=== PATIENT | female | born 1955 | race Caucasian/White ===

== ENCOUNTER → 2016-12-09 | Outpatient (CLI) | payer OTHER, MEDICARE ==
[~2016-12-09] MED LIST: ALPR1TAB2 PO; AMLO10TA4 PO; AMLO5TAB2 PO; ASPI1TAB30 PO; COLC0.6T37 PO; FLUC200T IV; LAMO2TB. PO; LOSA100T6 PO; MECL-76 PO; OMEP40CA6 PO; PIPE3.375 IV; PREG50CA PO; VALS40TA2 PO
== END | disposition home or self-care (01) ==
LOC: WOUND 09:24
PROVIDERS: ATTEND Surgery
DX: T81.89XD Other complications of procedures, not elsewhere classified, subsequent encounter (principal); K57.32 Diverticulitis of large intestine without perforation or abscess without bleeding; Z93.3 Colostomy status; K21.9 Gastro-esophageal reflux disease without esophagitis; F32.9 Major depressive disorder, single episode, unspecified; G43.909 Migraine, unspecified, not intractable, without status migrainosus; M19.90 Unspecified osteoarthritis, unspecified site; E43 Unspecified severe protein-calorie malnutrition; I25.2 Old myocardial infarction; F41.9 Anxiety disorder, unspecified; Z68.25 Body mass index [BMI] 25.0-25.9, adult; Z90.710 Acquired absence of both cervix and uterus; Y83.8 Other surgical procedures as the cause of abnormal reaction of the patient, or of later complication, without mention of misadventure at the time of the procedure
CPT/HCPCS: 99214

== ENCOUNTER → 2016-12-16 | Outpatient (CLI) | payer OTHER, MEDICARE | END | disposition home or self-care (01) | LOC: WOUND 09:30 | PROVIDERS: ATTEND Physician Assistant | DX: T81.89XD Other complications of procedures, not elsewhere classified, subsequent encounter (principal); K57.32 Diverticulitis of large intestine without perforation or abscess without bleeding; Y83.8 Other surgical procedures as the cause of abnormal reaction of the patient, or of later complication, without mention of misadventure at the time of the procedure | CPT/HCPCS: 99213 ==

== ENCOUNTER → 2016-12-19 | Outpatient (CLI) | payer OTHER, MEDICARE | END | disposition home or self-care (01) | LOC: CFH 11:08 | PROVIDERS: ATTEND Nurse Practitioner | DX: Z13.820 Encounter for screening for osteoporosis (principal); M81.0 Age-related osteoporosis without current pathological fracture; N95.9 Unspecified menopausal and perimenopausal disorder | CPT/HCPCS: 77080 ==

== ENCOUNTER 2017-02-22 18:31 | Emergency (ER) | payer MEDICARE, OTHER ==
[~2017-02-22] VITALS: Ht 167.6 cm; Wt 65.6 kg
[2017-02-22] MEDS ORDERED: KETOROLAC 30 MG/1 ML ONE (19:25)
[2017-02-22] MEDS ORDERED: DIAZEPAM 5 MG TABLET ONE (19:25)
[2017-02-22] MEDS ORDERED: OXYcodone/APAP 5/325MG TABLET ONE (19:28)
[2017-02-22] MEDS ORDERED: DIAZEPAM 5 MG TABLET PO ONE (19:30)
[2017-02-22] MEDS ORDERED: KETOROLAC 30 MG/1 ML IM ONE (19:30)
[2017-02-22] MEDS ORDERED: OXYcodone/APAP 5/325MG TABLET PO ONE (19:30)
[2017-02-22 19:55] LABS: ASPARTATE AMINO TRANSFERASE 8 U/L (15-37); BLOOD UREA NITROGEN 11 mg/dL (7-18)
[2017-02-22 21:33] VITALS: BP 126/70
== END 2017-02-22 21:35 | disposition home or self-care (01) ==
LOC: ED 20:49
DX: S16.1XXA Strain of muscle, fascia and tendon at neck level, initial encounter (principal); S39.012A Strain of muscle, fascia and tendon of lower back, initial encounter; S29.011A Strain of muscle and tendon of front wall of thorax, initial encounter; I10 Essential (primary) hypertension; M19.90 Unspecified osteoarthritis, unspecified site; G43.909 Migraine, unspecified, not intractable, without status migrainosus; M10.9 Gout, unspecified; K21.9 Gastro-esophageal reflux disease without esophagitis; K75.9 Inflammatory liver disease, unspecified; Z90.710 Acquired absence of both cervix and uterus; V49.49XA Driver injured in collision with other motor vehicles in traffic accident, initial encounter; Y93.89 Activity, other specified; Y92.89 Other specified places as the place of occurrence of the external cause; Y99.8 Other external cause status
CPT/HCPCS: 36415; 70450; 71010; 72072; 72110; 80053; 85025; 96372; 99285; J1885

== ENCOUNTER → 2017-03-28 | Outpatient (CLI) | payer OTHER, MEDICARE | END | disposition home or self-care (01) | LOC: WOUND 09:52 | PROVIDERS: ATTEND Internal Medicine | DX: K94.00 Colostomy complication, unspecified (principal); K94.09 Other complications of colostomy; I10 Essential (primary) hypertension; K21.9 Gastro-esophageal reflux disease without esophagitis; M10.9 Gout, unspecified; G43.909 Migraine, unspecified, not intractable, without status migrainosus; M19.90 Unspecified osteoarthritis, unspecified site; Z90.710 Acquired absence of both cervix and uterus; Z86.19 Personal history of other infectious and parasitic diseases; Z43.3 Encounter for attention to colostomy | CPT/HCPCS: 99214 ==

== ENCOUNTER → 2017-04-04 | Outpatient (CLI) | payer OTHER, MEDICARE | END | disposition home or self-care (01) | LOC: WOUND 09:58 | PROVIDERS: ATTEND Internal Medicine | DX: T81.89XD Other complications of procedures, not elsewhere classified, subsequent encounter (principal); I10 Essential (primary) hypertension; K21.9 Gastro-esophageal reflux disease without esophagitis; M19.90 Unspecified osteoarthritis, unspecified site; Z86.19 Personal history of other infectious and parasitic diseases; Z90.710 Acquired absence of both cervix and uterus; Y83.8 Other surgical procedures as the cause of abnormal reaction of the patient, or of later complication, without mention of misadventure at the time of the procedure | CPT/HCPCS: 99213 ==

== ENCOUNTER → 2017-04-11 | Outpatient (CLI) | payer OTHER, MEDICARE | END | disposition home or self-care (01) | LOC: WOUND 10:00 | PROVIDERS: ATTEND Internal Medicine | DX: T81.89XD Other complications of procedures, not elsewhere classified, subsequent encounter (principal); I10 Essential (primary) hypertension; K21.9 Gastro-esophageal reflux disease without esophagitis; M19.90 Unspecified osteoarthritis, unspecified site; Z90.710 Acquired absence of both cervix and uterus; Z86.19 Personal history of other infectious and parasitic diseases; Y83.8 Other surgical procedures as the cause of abnormal reaction of the patient, or of later complication, without mention of misadventure at the time of the procedure | CPT/HCPCS: 99213 ==

== ENCOUNTER → 2017-04-18 | Outpatient (CLI) | payer OTHER, MEDICARE ==
[~2017-04-18] MED LIST changes: +CALC300T5 PO
== END | disposition home or self-care (01) ==
LOC: WOUND 11:07
PROVIDERS: ATTEND Internal Medicine
DX: T81.89XD Other complications of procedures, not elsewhere classified, subsequent encounter (principal); I10 Essential (primary) hypertension; K21.9 Gastro-esophageal reflux disease without esophagitis; M19.90 Unspecified osteoarthritis, unspecified site; Z86.19 Personal history of other infectious and parasitic diseases; Z90.710 Acquired absence of both cervix and uterus; Y83.8 Other surgical procedures as the cause of abnormal reaction of the patient, or of later complication, without mention of misadventure at the time of the procedure
CPT/HCPCS: 99213

== ENCOUNTER → 2017-04-27 | Outpatient (CLI) | payer OTHER, MEDICARE ==
[2017-04-27 11:27] LABS: HEMATOCRIT 37.7 % (34.6-47.8); HEMOGLOBIN 11.7 g/dL (11.7-16.4); WHITE BLOOD COUNT 7.4 x10^3/uL (3.4-10)
[2017-04-27 11:30] LABS: ASPARTATE AMINO TRANSFERASE 9 U/L (15-37); BLOOD UREA NITROGEN 12 mg/dL (7-18)
== END | disposition home or self-care (01) ==
LOC: STAR 09:55
PROVIDERS: ATTEND Surgery
DX: Z01.818 Encounter for other preprocedural examination (principal)
CPT/HCPCS: 36415; 80053; 85025; 93005

== ENCOUNTER 2017-05-09 13:50 | Emergency (ER) | payer OTHER, MEDICARE ==
[~2017-05-09] VITALS: Ht 167.6 cm; Wt 67.0 kg
[2017-05-09] MEDS ORDERED: SODIUM CHLORIDE 0.9% 1,000ML IVBOLUS ONE (14:30)
[2017-05-09] MEDS ORDERED: KETOROLAC 30 MG/1 ML IVPush ONE (14:30)
[2017-05-09] MEDS ORDERED: ONDANSETRON 2MG/ML, 2ML IVPush ONE ×2 (14:30→17:30)
[2017-05-09] MEDS ORDERED: SODIUM CHLORIDE FLUSH 10ML SYR IVF ONE (14:30)
[2017-05-09] MEDS ORDERED: DIAZEPAM 5 MG/ML, 2ML IV ONE (14:30)
[2017-05-09] MEDS ORDERED: KETOROLAC 30 MG/1 ML ONE (15:23)
[2017-05-09] MEDS ORDERED: ONDANSETRON 2MG/ML, 2ML ONE ×2 (15:23→17:42)
[2017-05-09 15:27] LABS: BLOOD UREA NITROGEN 12 mg/dL (7-18)
[2017-05-09 15:29] LABS: ASPARTATE AMINO TRANSFERASE 11 U/L (15-37); HEMATOCRIT 37.7 % (34.6-47.8); HEMOGLOBIN 12.2 g/dL (11.7-16.4)
[2017-05-09 16:08] LABS: DIFF TOTAL CELLS COUNTED 100 CELL DIFF
[2017-05-09 16:12] LABS: VERIFY COUNTS? YES
[2017-05-09 16:15] LABS: HYPOCHROMIA 1+; MICROCYTOSIS 1+
[2017-05-09 16:16] LABS: OVALOCYTES 1+
[2017-05-09 16:17] LABS: ANISOCYTOSIS 1+
[2017-05-09] MEDS ORDERED: morphine SULFATE 10 MG/ML, 1ML IVPush ONE (17:30)
[2017-05-09] MEDS ORDERED: MORPHINE SULFATE 4 MG/ML, 1ML ONE (17:42)
[2017-05-09 18:36] VITALS: BP 116/65
== END 2017-05-09 19:01 | disposition home or self-care (01) ==
LOC: ED 18:43
DX: R10.84 Generalized abdominal pain (principal); R51 Headache; R11.0 Nausea
CPT/HCPCS: 36415; 74020; 80053; 81003; 83605; 83690; 85025; 85610; 96361; 96374; 96375; 96376; 99285; J1885; J2270; J2405; J3360; J7030

== ENCOUNTER → 2017-05-10 | Outpatient (CLI) | payer OTHER, MEDICARE ==
[~2017-05-10] MED LIST changes: +OMNIPAQUE 350 MG/ML, 100ML BOTTLE ONE
== END | disposition home or self-care (01) ==
LOC: CFH 13:08
PROVIDERS: ATTEND Surgery
DX: K43.5 Parastomal hernia without obstruction or gangrene (principal); M51.36 Other intervertebral disc degeneration, lumbar region
CPT/HCPCS: 74177; Q9967

== ENCOUNTER → 2017-06-09 | Outpatient (CLI) | payer OTHER, MEDICARE ==
[~2017-06-09] MED LIST changes: -ASPI1TAB30 PO; +ASPI1TAB31 PO; +IRON PO; +LAMO200T PO; -OMNIPAQUE 350 MG/ML, 100ML BOTTLE ONE
== END ==
LOC: STAR 09:27
PROVIDERS: ATTEND Surgery
DX: Z02.9 Encounter for administrative examinations, unspecified (principal)

== ENCOUNTER 2017-06-22 09:30 | Inpatient (IN) | payer OTHER, MEDICARE ==
[~2017-06-22] VITALS: Ht 167.6 cm; Wt 66.7 kg
[2017-06-22] MEDS ORDERED: LIDOCAINE 1%, 2ML ONE (11:24)
[2017-06-22 11:36] VITALS: BP 124/74
[2017-06-22] MEDS ORDERED: MIDAZOLAM 1 MG/ML, 2ML ONE (13:04)
[2017-06-22] MEDS ORDERED: FENTANYL PF 100 MCG/2ML ONE ×4 (13:04→17:48)
[2017-06-22] MEDS ORDERED: INDOCYANINE GREEN 25 MG VIAL ONE (14:24)
[2017-06-22] MEDS ORDERED: ONDANSETRON 2MG/ML, 2ML ONE (14:39)
[2017-06-22] MEDS ORDERED: ROCURONIUM 10 MG/ML ONE ×2 (14:39)
[2017-06-22] MEDS ORDERED: PROPOFOL 10 MG/ML, 20ML ONE (14:39)
[2017-06-22] MEDS ORDERED: SUCCINYLCHOLINE 20 MG/ML, 10ML ONE (14:39)
[2017-06-22] MEDS ORDERED: GLYCOPYRROLATE 0.2MG/1ML, 5ML ONE (14:39)
[2017-06-22] MEDS ORDERED: NEOSTIGMINE 1 MG/ML, 10ML ONE (14:39)
[2017-06-22] MEDS ORDERED: CEFOTETAN 2 GM ONE (14:39)
[2017-06-22] MEDS ORDERED: DEXAMETHASONE 4 MG/ML, 1ML ONE (14:39)
[2017-06-22] MEDS ORDERED: EPHEDRINE 50 MG/ML, 1ML ONE (14:39)
[2017-06-22] MEDS ORDERED: ACETAMINOPHEN 325 MG TABLET PO PRN (16:00)
[2017-06-22] MEDS ORDERED: OXYcodone 5 MG/5 ML ORAL.SOL UDC PO PRN (16:00)
[2017-06-22] MEDS ORDERED: LABETALOL 5MG/ML, 20ML IV PRN (16:00)
[2017-06-22] MEDS ORDERED: hydrALAzine 20 MG/ML, 1ML IV PRN (16:00)
[2017-06-22] MEDS ORDERED: ONDANSETRON 2MG/ML, 2ML IVPush PRN (16:00)
[2017-06-22] MEDS ORDERED: METOCLOPRAMIDE 5 MG/ML, 2ML IV PRN (16:00)
[2017-06-22] MEDS ORDERED: ACETAMINOPHEN 650 MG/20.3 ML UDC ONE (17:39)
[2017-06-22] MEDS: FENTANYL PF 100 MCG/2ML IV PRN ×3 (17:40→18:05)
[2017-06-22] MEDS ORDERED: ACETAMINOPHEN 325 MG TABLET ONE (17:40)
[2017-06-22] MEDS ORDERED: OXYcodone 5 MG/5 ML ORAL.SOL UDC ONE (17:40)
[2017-06-22] MEDS ORDERED: HYDROmorphone 1 MG/ML, 1ML ONE ×2 (17:49→18:09)
[2017-06-22] MEDS: HYDROmorphone 1 MG/ML, 1ML IV PRN ×5 (17:50→21:36)
[2017-06-22 19:30] VITALS: BP 124/69
[2017-06-22] MEDS ORDERED: LORazepam 2 MG/ML, 1ML IV PRN (19:30)
[2017-06-22] MEDS ORDERED: LORazepam 1MG TABLET PO PRN (19:30)
[2017-06-22] MEDS ORDERED: ONDANSETRON 2MG/ML, 2ML IV PRN (19:30)
[2017-06-22] MEDS ORDERED: DIPHENHYDRAMINE 50 MG/ML, 1ML IV PRN (19:30)
[2017-06-22] MEDS: IBUPROFEN 800 MG TABLET PO SCH (21:36)
[2017-06-22] MEDS: ACETAMINOPHEN 500 MG TABLET PO SCH (21:36)
[2017-06-22] MEDS: ASA/APAP/ CAFFEINE TABLET PO SCH (22:29)
[2017-06-22] MEDS: POTASSIUM CHLORIDE 20 MEQ in D5%-0.45% NACL 1,000 ML IV SCH (22:29)
[2017-06-22] MEDS: OXYcodone 5 MG/5 ML ORAL.SOL UDC PO PRN (22:29)
[2017-06-23] VITALS: BP 98/58
[2017-06-23] MEDS: HYDROmorphone 1 MG/ML, 1ML IV PRN (02:59)
[2017-06-23] MEDS: OXYcodone 5 MG/5 ML ORAL.SOL UDC PO PRN ×6 (03:00→23:13)
[2017-06-23] MEDS: ACETAMINOPHEN 500 MG TABLET PO SCH ×4 (03:00→20:17)
[2017-06-23 04:00] VITALS: BP 114/56
[2017-06-23 05:56] LABS: HEMOGLOBIN 11.1 g/dL (11.7-16.4); WHITE BLOOD COUNT 8.8 x10^3/uL (3.4-10)
[2017-06-23 06:14] LABS: BLOOD UREA NITROGEN 9 mg/dL (7-18)
[2017-06-23 06:32] VITALS: BP 134/69
[2017-06-23] MEDS: ASA/APAP/ CAFFEINE TABLET PO SCH ×2 (09:47→20:17)
[2017-06-23] MEDS: ENOXAPARIN 40 MG/0.4 ML SQ SCH (09:48)
[2017-06-23] MEDS: LAMOTRIGINE 200 MG TABLET PO SCH (09:48)
[2017-06-23] MEDS: IBUPROFEN 800 MG TABLET PO SCH ×3 (09:48→20:17)
[2017-06-23] MEDS: DIPHENHYDRAMINE 25 MG CAPSULE PO PRN ×2 (09:57→21:38)
[2017-06-23 14:00] VITALS: BP 110/61
[2017-06-23] MEDS: POTASSIUM CHLORIDE 20 MEQ in D5%-0.45% NACL 1,000 ML IV SCH (15:03)
[2017-06-23 19:16] VITALS: BP 107/59
[2017-06-24 01:40] VITALS: BP 115/68
[2017-06-24] MEDS: OXYcodone 5 MG/5 ML ORAL.SOL UDC PO PRN ×3 (03:14→10:36)
[2017-06-24] MEDS: ACETAMINOPHEN 500 MG TABLET PO SCH ×2 (03:16→08:31)
[2017-06-24] MEDS: DIPHENHYDRAMINE 25 MG CAPSULE PO PRN (04:26)
[2017-06-24 05:29] LABS: HEMATOCRIT 32.7 % (34.6-47.8); HEMOGLOBIN 10.7 g/dL (11.7-16.4)
[2017-06-24 05:41] LABS: BLOOD UREA NITROGEN 8 mg/dL (7-18)
[2017-06-24] MEDS ORDERED: OXYC5SOL8 PO (07:48)
[2017-06-24 08:01] VITALS: BP 120/66
[2017-06-24] MEDS: IBUPROFEN 800 MG TABLET PO SCH (08:29)
[2017-06-24] MEDS: LAMOTRIGINE 200 MG TABLET PO SCH (08:29)
[2017-06-24] MEDS: ENOXAPARIN 40 MG/0.4 ML SQ SCH (08:29)
[2017-06-24] MEDS ORDERED: FLU VACC QS2017-18 (36MOS+) UP/PF 0.5 ML IM-VACC ONE (08:30)
[2017-06-24] MEDS: ASA/APAP/ CAFFEINE TABLET PO SCH (08:31)
== END 2017-06-24 10:40 | disposition home or self-care (01) | DRG 331 ==
LOC: ORIP 10:36 → 4NOR 19:02
PROVIDERS: ADMIT Surgery; ATTEND Surgery
PROC: 0WQF0ZZ Repair Abdominal Wall, Open Approach (ICD-10-PCS; 2017-06-22)
PROC: 8E0W0CZ Robotic Assisted Procedure of Trunk Region, Open Approach (ICD-10-PCS; 2017-06-22)
PROC: 0DBE0ZZ Excision of Large Intestine, Open Approach (ICD-10-PCS; principal; 2017-06-22 12:30)
DX: Z43.3 Encounter for attention to colostomy (principal); K43.5 Parastomal hernia without obstruction or gangrene; Z90.722 Acquired absence of ovaries, bilateral; Z90.710 Acquired absence of both cervix and uterus; Z80.3 Family history of malignant neoplasm of breast; Z80.8 Family history of malignant neoplasm of other organs or systems
CPT/HCPCS: 36415; 80048; 82040; 85025; 88302; 88304; 88307; 90686; J1100; J1170; J1650; J2250; J2405; J2704; J2710; J3010; J3480; J3490; J0330; Q0163; S0074

== ENCOUNTER 2017-11-17 08:53 | Day surgery (SDC) | payer OTHER, MEDICARE ==
[2017-11-14 10:28] LABS: MICROSCOPIC NOT IND
[2017-11-14 10:37] LABS: CULTURE INDICATED? NO
[2017-11-14 10:37] LABS: ALANINE AMINOTRANSFERASE 12 U/L (12-78); ALBUMIN 3.5 g/dL (3.4-5.0); ANION GAP 8 mmol/L (5-15); CHLORIDE 107 mmol/L (98-107); CREATININE 0.61 mg/dL (0.55-1.02)
[2017-11-14 10:40] LABS: ALKALINE PHOSPHATASE 115 U/L (45-117); BILIRUBIN,TOTAL 0.2 mg/dL (0.2-1.0); TOTAL PROTEIN 7.8 g/dL (6.4-8.2)
[~2017-11-17] VITALS: Ht 167.6 cm; Wt 69.4 kg
[~2017-11-17 08:53] MED LIST changes: +ALPR-475 PO; +BUPIVACAINE/PF 0.5% ONE; -LAMO200T PO; +LAMO200T2 PO; +OXYC5SOL8 PO
[2017-11-17] MEDS ORDERED: FENTANYL PF 250 MCG/5ML ONE (08:55)
[2017-11-17] MEDS ORDERED: MIDAZOLAM 1 MG/ML, 2ML ONE ×2 (08:55→12:05)
[2017-11-17] MEDS ORDERED: LACTATED RINGERS 1,000 ML IV SCH (09:23)
[2017-11-17 09:42] VITALS: BP 110/70
[2017-11-17] MEDS ORDERED: ROCURONIUM 10 MG/ML,10ML ONE (10:12)
[2017-11-17] MEDS ORDERED: PROPOFOL 10 MG/ML, 20ML ONE (10:12)
[2017-11-17] MEDS ORDERED: EPHEDRINE 50 MG/ML, 1ML ONE (10:25)
[2017-11-17] MEDS ORDERED: CEFOTETAN 2 GM ONE (10:25)
[2017-11-17] MEDS ORDERED: DEXAMETHASONE 4 MG/ML, 1ML ONE ×2 (10:42)
[2017-11-17] MEDS ORDERED: ONDANSETRON 2MG/ML, 2ML ONE (11:15)
[2017-11-17] MEDS ORDERED: NEOSTIGMINE 1 MG/ML, 10ML ONE (11:21)
[2017-11-17] MEDS ORDERED: GLYCOPYRROLATE 0.4 MG/2 ML, 2ML ONE (11:21)
[2017-11-17] MEDS ORDERED: morphine SULFATE 10 MG/ML, 1ML ONE (11:37)
[2017-11-17] MEDS ORDERED: OXYcodone 5 MG/5 ML ORAL.SOL UDC ONE ×2 (11:38→12:29)
[2017-11-17] MEDS ORDERED: FENTANYL PF 100 MCG/2ML ONE ×2 (11:38→12:05)
[2017-11-17] MEDS: OXYcodone 5 MG/5 ML ORAL.SOL UDC PO PRN ×2 (11:40→12:32)
[2017-11-17] MEDS: FENTANYL PF 100 MCG/2ML IV PRN ×3 (11:44→12:26)
[2017-11-17] MEDS: morphine SULFATE 10 MG/ML, 1ML IV PRN ×2 (11:48→12:08)
[2017-11-17] MEDS ORDERED: ONDANSETRON 2MG/ML, 2ML IVPush PRN (12:00)
[2017-11-17] MEDS ORDERED: hydrALAzine 20 MG/ML, 1ML IV PRN (12:00)
[2017-11-17] MEDS ORDERED: MEPERIDINE/PF 25MG/0.5ML IVPush PRN (12:00)
[2017-11-17] MEDS ORDERED: ACETAMINOPHEN 325 MG TABLET PO PRN (12:00)
[2017-11-17] MEDS ORDERED: PROMETHAZINE 12.5 MG SUPP PR PRN (12:00)
[2017-11-17] MEDS ORDERED: LABETALOL 5MG/ML, 20ML IV PRN (12:00)
[2017-11-17] MEDS ORDERED: HYDROmorphone 1 MG/ML, 1ML IV PRN (12:00)
[2017-11-17] MEDS ORDERED: MIDAZOLAM 1 MG/ML, 2ML IV PRN (12:00)
[2017-11-17] MEDS ORDERED: ACETAMINOPHEN 650 MG/20.3 ML UDC ONE (12:29)
[2017-11-17] MEDS ORDERED: KETOROLAC 30 MG/1 ML ONE (14:23)
[2017-11-17] MEDS ORDERED: KETOROLAC 30 MG/1 ML IVPush SCH (14:30)
== END 2017-11-17 16:45 ==
LOC: OUT 08:53
PROVIDERS: ATTEND Surgery
DX: K65.1 Peritoneal abscess (principal); K21.9 Gastro-esophageal reflux disease without esophagitis; F41.9 Anxiety disorder, unspecified; F32.9 Major depressive disorder, single episode, unspecified; I10 Essential (primary) hypertension; Z93.3 Colostomy status; Z86.19 Personal history of other infectious and parasitic diseases; Z87.39 Personal history of other diseases of the musculoskeletal system and connective tissue; Z90.710 Acquired absence of both cervix and uterus; Z98.890 Other specified postprocedural states
CPT/HCPCS: 36415; 49322; 80053; 81003; 87070; 87075; 87076; 87102; 87205; 88305; 93005; C1729; J1100; J1885; J2250; J2270; J2405; J2704; J2710; J3010; J3490; J7120; S0074

== ENCOUNTER 2017-11-19 18:39 | Inpatient (IN) | payer OTHER, MEDICARE ==
[~2017-11-19] VITALS: Ht 165.1 cm; Wt 67.2 kg
[~2017-11-19 18:39] MED LIST changes: -BUPIVACAINE/PF 0.5% ONE
[2017-11-19] MEDS ORDERED: SODIUM CHLORIDE 0.9% 1,000 ML IV ONE (19:15)
[2017-11-19] MEDS ORDERED: HYDROmorphone 1 MG/ML, 1ML IVPush PRN (19:30)
[2017-11-19] MEDS ORDERED: FAMOTIDINE 20 MG/2 ML IVP ONE (19:30)
[2017-11-19] MEDS ORDERED: SODIUM CHLORIDE 0.9% 1,000ML IVBOLUS ONE ×2 (19:30→21:00)
[2017-11-19] MEDS ORDERED: ONDANSETRON 2MG/ML, 2ML IVPush ONE (19:30)
[2017-11-19] MEDS ORDERED: LORazepam 2 MG/ML, 1ML IVPush ONE (19:30)
[2017-11-19] MEDS ORDERED: SODIUM CHLORIDE FLUSH 10ML SYR IVF ONE (19:30)
[2017-11-19] MEDS ORDERED: LORazepam 2 MG/ML, 1ML ONE (19:59)
[2017-11-19] MEDS ORDERED: HYDROmorphone 1 MG/ML, 1ML ONE (20:00)
[2017-11-19] MEDS ORDERED: ONDANSETRON 2MG/ML, 2ML ONE (20:00)
[2017-11-19] MEDS ORDERED: FAMOTIDINE 20 MG/2 ML ONE (20:01)
[2017-11-19 20:06] LABS: BASOPHILS # (AUTO) 0.04 x10^3/uL (0-0.1); BASOPHILS % (AUTO) 0 % (0-1); EOSINOPHILS # (AUTO) 0.01 x10^3/uL (0-0.4); EOSINOPHILS % (AUTO) 0 % (1-7); LYMPHOCYTES # (AUTO) 1.04 x10^3/uL (1-3.4); LYMPHOCYTES % (AUTO) 8 % (22-44); MD NO; MEAN CORPUSCULAR HEMOGLOBIN 27.1 pg (27.0-34.8); MEAN CORPUSCULAR VOLUME 82.2 fL (80-100); MEAN PLATELET VOLUME 6.7 fL (7.4-10.4); MONOCYTES # (AUTO) 0.84 x10^3/uL (0.2-0.8); MONOCYTES % (AUTO) 7 % (2-9); NEUTROPHILS # (AUTO) 10.44 x10^3/uL (1.8-6.8); NEUTROPHILS % (AUTO) 84 % (42-75); PLATELET COUNT 438 x10^3/uL (130-400); RED BLOOD COUNT 4.43 x10^6/uL (3.82-5.3); RED CELL DISTRIBUTION WIDTH 16.1 % (9.6-15.2)
[2017-11-19] MEDS ORDERED: SIME180C44 PO (20:09)
[2017-11-19] MEDS ORDERED: SENN1TAB67 PO (20:10)
[2017-11-19] MEDS ORDERED: AMOX1TAB25 PO (20:10)
[2017-11-19] MEDS ORDERED: OXYC-302 PO (20:11)
[2017-11-19 20:14] LABS: ALBUMIN 3.5 g/dL (3.4-5.0); ANION GAP 9 mmol/L (5-15); CALCIUM 9.2 mg/dL (8.5-10.1); CHLORIDE 98 mmol/L (98-107)
[2017-11-19 20:18] LABS: ALANINE AMINOTRANSFERASE 17 U/L (12-78); ALKALINE PHOSPHATASE 117 U/L (45-117); BILIRUBIN,TOTAL 0.4 mg/dL (0.2-1.0); CREATININE 0.61 mg/dL (0.55-1.02); TOTAL PROTEIN 8.4 g/dL (6.4-8.2)
[2017-11-19 20:53] LABS: MICROSCOPIC NOT IND
[2017-11-19] MEDS ORDERED: morphine SULFATE 10 MG/ML, 1ML IVPush PRN (21:00)
[2017-11-19] MEDS ORDERED: ONDANSETRON ODT 4 MG PO PRN (21:00)
[2017-11-19] MEDS ORDERED: ACETAMINOPHEN 325 MG TABLET PO PRN (21:00)
[2017-11-19] MEDS ORDERED: DIPHENHYDRAMINE 25 MG CAPSULE PO PRN (21:00)
[2017-11-19 21:04] LABS: CULTURE INDICATED? NO
[2017-11-19 21:59] VITALS: BP 124/64
[2017-11-19] MEDS: HEPARIN 5,000 UNITS/ML, 1ML SQ SCH (22:32)
[2017-11-19] MEDS: FAMOTIDINE 20 MG TABLET PO SCH (22:33)
[2017-11-19] MEDS: LOSARTAN 50MG TABLET PO SCH (22:33)
[2017-11-19] MEDS: AMLODIPINE 5 MG TABLET PO SCH (22:33)
[2017-11-19] MEDS: OXYcodone IR 5MG TABLET PO PRN (22:33)
[2017-11-19] MEDS: D5%-0.45NACL+KCL 20MEQ 1,000 ML IV SCH (22:34)
[2017-11-19] MEDS: PIPERACILLIN/TAZO/PMX 3.375GM 50 ML IV SCH (22:34)
[2017-11-20] MEDS: PROMETHAZINE 25 MG/ML, 1ML IM PRN ×2 (00:11→21:26)
[2017-11-20 01:35] VITALS: BP 120/66
[2017-11-20] MEDS: PIPERACILLIN/TAZO/PMX 3.375GM 50 ML IV SCH ×4 (04:32→22:37)
[2017-11-20 05:11] LABS: BASOPHILS # (AUTO) 0.02 x10^3/uL (0-0.1); BASOPHILS % (AUTO) 0 % (0-1); EOSINOPHILS # (AUTO) 0.01 x10^3/uL (0-0.4); EOSINOPHILS % (AUTO) 0 % (1-7); LYMPHOCYTES # (AUTO) 1.46 x10^3/uL (1-3.4); LYMPHOCYTES % (AUTO) 18 % (22-44); MD NO; MEAN CORPUSCULAR HEMOGLOBIN 26.8 pg (27.0-34.8); MEAN CORPUSCULAR HGB CONC 32.3 g/dL (32.4-35.8); MEAN CORPUSCULAR VOLUME 82.8 fL (80-100); MEAN PLATELET VOLUME 6.6 fL (7.4-10.4); MONOCYTES # (AUTO) 1.11 x10^3/uL (0.2-0.8); MONOCYTES % (AUTO) 13 % (2-9); NEUTROPHILS # (AUTO) 5.73 x10^3/uL (1.8-6.8); NEUTROPHILS % (AUTO) 69 % (42-75); PLATELET COUNT 377 x10^3/uL (130-400); RED BLOOD COUNT 3.76 x10^6/uL (3.82-5.3)
[2017-11-20 05:18] LABS: CHLORIDE 106 mmol/L (98-107)
[2017-11-20 05:24] LABS: ANION GAP 8 mmol/L (5-15); CALCIUM 8.3 mg/dL (8.5-10.1); CREATININE 0.48 mg/dL (0.55-1.02)
[2017-11-20] MEDS: HEPARIN 5,000 UNITS/ML, 1ML SQ SCH ×3 (06:09→22:37)
[2017-11-20 06:49] VITALS: BP 117/68
[2017-11-20] MEDS: LAMOTRIGINE 200 MG TABLET PO SCH (08:39)
[2017-11-20] MEDS: D5%-0.45NACL+KCL 20MEQ 1,000 ML IV SCH ×2 (08:39→21:39)
[2017-11-20] MEDS: OXYcodone IR 5MG TABLET PO PRN ×3 (08:39→21:26)
[2017-11-20] MEDS: FAMOTIDINE 20 MG TABLET PO SCH ×2 (08:39→21:25)
[2017-11-20] MEDS: FLUCONAZOLE 200 MG/100 ML 100 ML IV SCH (10:37)
[2017-11-20 14:00] VITALS: BP 146/69
[2017-11-20 19:09] VITALS: BP 116/62
[2017-11-20] MEDS: AMLODIPINE 5 MG TABLET PO SCH (21:25)
[2017-11-20] MEDS: LOSARTAN 50MG TABLET PO SCH (21:26)
[2017-11-21 01:07] VITALS: BP 130/67
[2017-11-21] MEDS: PIPERACILLIN/TAZO/PMX 3.375GM 50 ML IV SCH ×4 (04:40→22:46)
[2017-11-21] MEDS: HEPARIN 5,000 UNITS/ML, 1ML SQ SCH ×3 (06:53→22:46)
[2017-11-21] MEDS: OXYcodone IR 5MG TABLET PO PRN ×2 (06:54→20:07)
[2017-11-21 07:22] VITALS: BP 121/66
[2017-11-21] MEDS: FAMOTIDINE 20 MG TABLET PO SCH ×2 (08:54→20:08)
[2017-11-21] MEDS: LAMOTRIGINE 200 MG TABLET PO SCH (08:54)
[2017-11-21] MEDS: FLUCONAZOLE 200 MG/100 ML 100 ML IV SCH (11:38)
[2017-11-21] MEDS: D5%-0.45NACL+KCL 20MEQ 1,000 ML IV SCH (11:38)
[2017-11-21 12:36] VITALS: BP 120/71
[2017-11-21] MEDS: ONDANSETRON 2MG/ML, 2ML IVPush PRN (12:48)
[2017-11-21 18:53] VITALS: BP 128/70
[2017-11-21] MEDS: LOSARTAN 50MG TABLET PO SCH (20:07)
[2017-11-21] MEDS: AMLODIPINE 5 MG TABLET PO SCH (20:08)
[2017-11-21] MEDS: ZOLPIDEM 5MG TABLET PO PRN (20:19)
[2017-11-22] MEDS: D5%-0.45NACL+KCL 20MEQ 1,000 ML IV SCH ×2 (00:44→14:05)
[2017-11-22 00:54] VITALS: BP 119/62
[2017-11-22] MEDS: PIPERACILLIN/TAZO/PMX 3.375GM 50 ML IV SCH ×4 (05:00→23:21)
[2017-11-22] MEDS: ONDANSETRON 2MG/ML, 2ML IVPush PRN ×2 (05:07→11:58)
[2017-11-22] MEDS: OXYcodone IR 5MG TABLET PO PRN ×2 (05:28→21:12)
[2017-11-22] MEDS: HEPARIN 5,000 UNITS/ML, 1ML SQ SCH ×3 (06:38→23:29)
[2017-11-22 07:52] VITALS: BP 112/58
[2017-11-22] MEDS: LAMOTRIGINE 200 MG TABLET PO SCH (09:00)
[2017-11-22] MEDS: FAMOTIDINE 20 MG TABLET PO SCH ×2 (09:33→21:12)
[2017-11-22] MEDS: FLUCONAZOLE 200 MG/100 ML 100 ML IV SCH (11:58)
[2017-11-22 14:09] VITALS: BP 161/75
[2017-11-22 14:33] LABS: BASOPHILS # (AUTO) 0.04 x10^3/uL (0-0.1); BASOPHILS % (AUTO) 1 % (0-1); EOSINOPHILS # (AUTO) 0.21 x10^3/uL (0-0.4); EOSINOPHILS % (AUTO) 3 % (1-7); LYMPHOCYTES # (AUTO) 1.05 x10^3/uL (1-3.4); LYMPHOCYTES % (AUTO) 12 % (22-44); MD NO; MEAN CORPUSCULAR HEMOGLOBIN 26.5 pg (27.0-34.8); MEAN CORPUSCULAR HGB CONC 32.2 g/dL (32.4-35.8); MEAN CORPUSCULAR VOLUME 82.4 fL (80-100); MEAN PLATELET VOLUME 6.2 fL (7.4-10.4); MONOCYTES # (AUTO) 0.48 x10^3/uL (0.2-0.8); MONOCYTES % (AUTO) 6 % (2-9); NEUTROPHILS # (AUTO) 6.88 x10^3/uL (1.8-6.8); NEUTROPHILS % (AUTO) 79 % (42-75); PLATELET COUNT 440 x10^3/uL (130-400); RED BLOOD COUNT 4.24 x10^6/uL (3.82-5.3); RED CELL DISTRIBUTION WIDTH 15.8 % (9.6-15.2)
[2017-11-22 14:44] LABS: ALANINE AMINOTRANSFERASE 16 U/L (12-78); ALBUMIN 2.9 g/dL (3.4-5.0); ANION GAP 7 mmol/L (5-15); CALCIUM 8.7 mg/dL (8.5-10.1); CHLORIDE 103 mmol/L (98-107); CREATININE 0.57 mg/dL (0.55-1.02)
[2017-11-22 14:46] LABS: ALKALINE PHOSPHATASE 97 U/L (45-117); BILIRUBIN,TOTAL 0.3 mg/dL (0.2-1.0); TOTAL PROTEIN 7.3 g/dL (6.4-8.2)
[2017-11-22] MEDS ORDERED: OMNIPAQUE 350 MG/ML, 100ML BOTTLE ONE (16:02)
[2017-11-22 19:02] VITALS: BP 144/74
[2017-11-22] MEDS: LOSARTAN 50MG TABLET PO SCH (21:12)
[2017-11-22] MEDS: AMLODIPINE 5 MG TABLET PO SCH (21:12)
[2017-11-22] MEDS: ZOLPIDEM 5MG TABLET PO PRN (23:21)
[2017-11-23] MEDS: D5%-0.45NACL+KCL 20MEQ 1,000 ML IV SCH ×2 (01:16→16:03)
[2017-11-23 01:27] VITALS: BP 133/83
[2017-11-23] MEDS: PIPERACILLIN/TAZO/PMX 3.375GM 50 ML IV SCH ×2 (05:37→13:02)
[2017-11-23 05:43] LABS: BASOPHILS # (AUTO) 0.04 x10^3/uL (0-0.1); BASOPHILS % (AUTO) 1 % (0-1); EOSINOPHILS # (AUTO) 0.32 x10^3/uL (0-0.4); EOSINOPHILS % (AUTO) 4 % (1-7); LYMPHOCYTES # (AUTO) 1.33 x10^3/uL (1-3.4); LYMPHOCYTES % (AUTO) 18 % (22-44); MD NO; MEAN CORPUSCULAR HGB CONC 32.8 g/dL (32.4-35.8); MEAN CORPUSCULAR VOLUME 82.4 fL (80-100); MEAN PLATELET VOLUME 6.3 fL (7.4-10.4); MONOCYTES # (AUTO) 0.63 x10^3/uL (0.2-0.8); MONOCYTES % (AUTO) 8 % (2-9); NEUTROPHILS # (AUTO) 5.21 x10^3/uL (1.8-6.8); NEUTROPHILS % (AUTO) 69 % (42-75); PLATELET COUNT 425 x10^3/uL (130-400); RED BLOOD COUNT 4.25 x10^6/uL (3.82-5.3); RED CELL DISTRIBUTION WIDTH 15.6 % (9.6-15.2)
[2017-11-23 05:55] LABS: ANION GAP 8 mmol/L (5-15); CALCIUM 8.9 mg/dL (8.5-10.1); CHLORIDE 100 mmol/L (98-107)
[2017-11-23 05:58] LABS: CREATININE 0.69 mg/dL (0.55-1.02)
[2017-11-23] MEDS: ONDANSETRON 2MG/ML, 2ML IVPush PRN (06:06)
[2017-11-23 07:03] VITALS: BP 133/83
[2017-11-23] MEDS: HEPARIN 5,000 UNITS/ML, 1ML SQ SCH ×2 (07:30→15:12)
[2017-11-23] MEDS: ASA/APAP/ CAFFEINE TABLET PO PRN (08:39)
[2017-11-23] MEDS: FAMOTIDINE 20 MG TABLET PO SCH ×2 (08:39→20:59)
[2017-11-23] MEDS: LORazepam 1MG TABLET PO PRN ×2 (08:46→20:59)
[2017-11-23] MEDS: LAMOTRIGINE 200 MG TABLET PO SCH (08:47)
[2017-11-23] MEDS ORDERED: LIDOCAINE 2%, 10ML ONE ×2 (08:52→11:22)
[2017-11-23] MEDS ORDERED: FENTANYL PF 100 MCG/2ML ONE (10:41)
[2017-11-23] MEDS ORDERED: MIDAZOLAM 1 MG/ML, 5ML ONE ×2 (10:41)
[2017-11-23] MEDS ORDERED: NALOXONE 1 MG/ML, 2ML ONE (10:42)
[2017-11-23] MEDS ORDERED: FLUMAZENIL 0.1 MG/1 ML, 5ML ONE (10:42)
[2017-11-23] MEDS: OXYcodone IR 5MG TABLET PO PRN ×2 (14:17→20:58)
[2017-11-23 15:08] VITALS: BP 96/50
[2017-11-23] MEDS: FLUCONAZOLE 200 MG/100 ML 100 ML IV SCH (16:04)
[2017-11-23] MEDS ORDERED: PIPERACILLIN/TAZO 3.375 GM in DEXTROSE 5% 50 ML IV SCH (18:00)
[2017-11-23 19:03] VITALS: BP 115/68
[2017-11-23] MEDS: PIPERACILLIN/TAZO 3.375 GM in DEXTROSE 5% 50 ML IV SCH (20:58)
[2017-11-23] MEDS: LOSARTAN 50MG TABLET PO SCH (20:59)
[2017-11-23] MEDS: AMLODIPINE 5 MG TABLET PO SCH (20:59)
[2017-11-24] MEDS: HEPARIN 5,000 UNITS/ML, 1ML SQ SCH ×4 (00:24→23:35)
[2017-11-24 03:19] VITALS: BP 132/77
[2017-11-24] MEDS: D5%-0.45NACL+KCL 20MEQ 1,000 ML IV SCH ×3 (03:28→23:34)
[2017-11-24] MEDS: PIPERACILLIN/TAZO 3.375 GM in DEXTROSE 5% 50 ML IV SCH ×3 (03:28→15:00)
[2017-11-24] MEDS: OXYcodone IR 5MG TABLET PO PRN ×3 (03:32→19:44)
[2017-11-24 06:11] LABS: BASOPHILS # (AUTO) 0.05 x10^3/uL (0-0.1); BASOPHILS % (AUTO) 0 % (0-1); EOSINOPHILS # (AUTO) 0.12 x10^3/uL (0-0.4); EOSINOPHILS % (AUTO) 1 % (1-7); LYMPHOCYTES % (AUTO) 11 % (22-44); MD NO; MEAN CORPUSCULAR HEMOGLOBIN 26.9 pg (27.0-34.8); MEAN CORPUSCULAR HGB CONC 32.3 g/dL (32.4-35.8); MEAN CORPUSCULAR VOLUME 83.2 fL (80-100); MEAN PLATELET VOLUME 6.2 fL (7.4-10.4); MONOCYTES # (AUTO) 1.11 x10^3/uL (0.2-0.8); MONOCYTES % (AUTO) 9 % (2-9); NEUTROPHILS # (AUTO) 9.25 x10^3/uL (1.8-6.8); NEUTROPHILS % (AUTO) 78 % (42-75); PLATELET COUNT 496 x10^3/uL (130-400); RED BLOOD COUNT 4.38 x10^6/uL (3.82-5.3); RED CELL DISTRIBUTION WIDTH 15.5 % (9.6-15.2)
[2017-11-24 06:12] LABS: CHLORIDE 99 mmol/L (98-107)
[2017-11-24 06:17] LABS: ANION GAP 8 mmol/L (5-15); CALCIUM 8.8 mg/dL (8.5-10.1); CREATININE 0.66 mg/dL (0.55-1.02)
[2017-11-24 07:20] VITALS: BP 122/68
[2017-11-24] MEDS: FAMOTIDINE 20 MG TABLET PO SCH ×2 (08:30→19:44)
[2017-11-24] MEDS: LAMOTRIGINE 200 MG TABLET PO SCH (08:30)
[2017-11-24] MEDS: PANTOPROZOLE 40MG TABLET PO SCH ×2 (11:35→23:35)
[2017-11-24 13:49] VITALS: BP 128/72
[2017-11-24] MEDS: LORazepam 1MG TABLET PO PRN ×2 (14:00→20:57)
[2017-11-24] MEDS: FLUCONAZOLE 400 MG/200 ML 200 ML IV SCH (16:00)
[2017-11-24] MEDS: PIPERACILLIN/TAZO/PMX 4.5GM 100 ML IV SCH ×2 (18:04→23:35)
[2017-11-24 19:12] VITALS: BP 113/63
[2017-11-24] MEDS: AMLODIPINE 5 MG TABLET PO SCH (19:44)
[2017-11-24] MEDS: LOSARTAN 50MG TABLET PO SCH (19:44)
[2017-11-25 02:27] VITALS: BP 117/62
[2017-11-25] MEDS: OXYcodone IR 5MG TABLET PO PRN ×4 (02:42→20:35)
[2017-11-25 07:25] VITALS: BP 113/64
[2017-11-25] MEDS: PIPERACILLIN/TAZO/PMX 4.5GM 100 ML IV SCH ×2 (07:51→16:42)
[2017-11-25] MEDS ORDERED: PROPOFOL 10 MG/ML, 20ML ONE (08:59)
[2017-11-25] MEDS: FAMOTIDINE 20 MG TABLET PO SCH ×2 (09:00→20:35)
[2017-11-25] MEDS ORDERED: ONDANSETRON 2MG/ML, 2ML IVPush PRN (09:30)
[2017-11-25] MEDS ORDERED: PROMETHAZINE 25 MG/ML, 1ML IV PRN (09:30)
[2017-11-25] MEDS ORDERED: PROMETHAZINE 12.5 MG SUPP PR PRN (09:30)
[2017-11-25] MEDS: D5%-0.45NACL+KCL 20MEQ 1,000 ML IV SCH ×2 (10:06→22:31)
[2017-11-25] MEDS: LAMOTRIGINE 200 MG TABLET PO SCH (10:20)
[2017-11-25] MEDS: HEPARIN 5,000 UNITS/ML, 1ML SQ SCH ×2 (10:20→16:17)
[2017-11-25] MEDS: PANTOPROZOLE 40MG TABLET PO SCH ×2 (10:20→22:31)
[2017-11-25 13:41] VITALS: BP 100/52
[2017-11-25] MEDS: FLUCONAZOLE 400 MG/200 ML 200 ML IV SCH (15:07)
[2017-11-25 18:59] VITALS: BP 103/61
[2017-11-25] MEDS: LOSARTAN 50MG TABLET PO SCH (20:34)
[2017-11-25] MEDS: AMLODIPINE 5 MG TABLET PO SCH (20:35)
[2017-11-25] MEDS: LORazepam 1MG TABLET PO PRN (20:47)
[2017-11-25] MEDS: ASA/APAP/ CAFFEINE TABLET PO PRN (22:25)
[2017-11-26] MEDS: HEPARIN 5,000 UNITS/ML, 1ML SQ SCH ×3 (01:01→17:06)
[2017-11-26] MEDS: OXYcodone IR 5MG TABLET PO PRN ×4 (01:01→21:01)
[2017-11-26] MEDS: PIPERACILLIN/TAZO/PMX 4.5GM 100 ML IV SCH ×2 (01:01→08:09)
[2017-11-26] MEDS: LORazepam 1MG TABLET PO PRN (01:15)
[2017-11-26 02:30] VITALS: BP 108/64
[2017-11-26] MEDS: D5%-0.45NACL+KCL 20MEQ 1,000 ML IV SCH ×2 (07:00→18:41)
[2017-11-26] MEDS: LAMOTRIGINE 200 MG TABLET PO SCH (08:08)
[2017-11-26] MEDS: FAMOTIDINE 20 MG TABLET PO SCH ×2 (08:08→20:43)
[2017-11-26 09:00] VITALS: BP 115/68
[2017-11-26] MEDS: AMPICILLIN/SULBACTAM 3 GM in SODIUM CHLORIDE 0.9% 100 ML IV SCH ×2 (11:23→20:43)
[2017-11-26] MEDS: PANTOPROZOLE 40MG TABLET PO SCH ×2 (11:23→22:22)
[2017-11-26 15:01] VITALS: BP 135/76
[2017-11-26] MEDS: FLUCONAZOLE 400 MG/200 ML 200 ML IV SCH (17:06)
[2017-11-26 18:41] VITALS: BP 133/66
[2017-11-26] MEDS: LOSARTAN 50MG TABLET PO SCH (20:43)
[2017-11-26] MEDS: AMLODIPINE 5 MG TABLET PO SCH (20:43)
[2017-11-26] MEDS: ASA/APAP/ CAFFEINE TABLET PO PRN (20:57)
[2017-11-27] MEDS: HEPARIN 5,000 UNITS/ML, 1ML SQ SCH ×3 (01:07→17:08)
[2017-11-27 01:11] VITALS: BP 109/62
[2017-11-27] MEDS: D5%-0.45NACL+KCL 20MEQ 1,000 ML IV SCH ×2 (04:10→23:32)
[2017-11-27] MEDS: AMPICILLIN/SULBACTAM 3 GM in SODIUM CHLORIDE 0.9% 100 ML IV SCH ×3 (04:10→20:58)
[2017-11-27] MEDS: OXYcodone IR 5MG TABLET PO PRN ×4 (04:35→21:04)
[2017-11-27 07:16] VITALS: BP 104/58
[2017-11-27] MEDS: FAMOTIDINE 20 MG TABLET PO SCH ×2 (07:50→21:00)
[2017-11-27] MEDS: LAMOTRIGINE 200 MG TABLET PO SCH (07:50)
[2017-11-27] MEDS: PANTOPROZOLE 40MG TABLET PO SCH ×2 (09:47→23:32)
[2017-11-27 13:27] VITALS: BP 106/67
[2017-11-27] MEDS: MICAFUNGIN 100 MG in SODIUM CHLORIDE 0.9% 100 ML IV SCH (17:04)
[2017-11-27 19:37] VITALS: BP 122/76
[2017-11-27] MEDS: ASA/APAP/ CAFFEINE TABLET PO PRN (19:41)
[2017-11-27] MEDS: AMLODIPINE 5 MG TABLET PO SCH (21:00)
[2017-11-27] MEDS: LOSARTAN 50MG TABLET PO SCH (21:00)
[2017-11-28] MEDS: HEPARIN 5,000 UNITS/ML, 1ML SQ SCH ×2 (01:28→09:28)
[2017-11-28 02:35] VITALS: BP 103/63
[2017-11-28] MEDS: AMPICILLIN/SULBACTAM 3 GM in SODIUM CHLORIDE 0.9% 100 ML IV SCH ×2 (04:35→10:56)
[2017-11-28] MEDS: OXYcodone IR 5MG TABLET PO PRN ×2 (04:48→09:03)
[2017-11-28] MEDS: D5%-0.45NACL+KCL 20MEQ 1,000 ML IV SCH (07:25)
[2017-11-28 08:18] VITALS: BP 123/62
[2017-11-28] MEDS: LAMOTRIGINE 200 MG TABLET PO SCH (09:31)
[2017-11-28] MEDS: FAMOTIDINE 20 MG TABLET PO SCH (09:31)
[2017-11-28] MEDS: PANTOPROZOLE 40MG TABLET PO SCH (10:57)
[2017-11-28] MEDS ORDERED: ERTAPENEM 1 GM in SODIUM CHLORIDE 0.9% 50 ML IV SCH (11:00)
[2017-11-28] MEDS: ONDANSETRON 2MG/ML, 2ML IVPush PRN (11:06)
[2017-11-28] MEDS: ASA/APAP/ CAFFEINE TABLET PO PRN (11:06)
[2017-11-28 12:46] VITALS: BP 130/68
[2017-11-28] MEDS: MICAFUNGIN 100 MG in SODIUM CHLORIDE 0.9% 100 ML IV SCH (14:24)
== END 2017-11-28 16:19 | disposition home or self-care (01) | DRG 391 ==
LOC: ED 20:06 → EDIP 20:35 → 4NOR 21:55
PROVIDERS: ADMIT Surgery; ATTEND Surgery
PROC: 0D758ZZ Dilation of Esophagus, Via Natural or Artificial Opening Endoscopic (ICD-10-PCS; 2017-11-19)
PROC: 0F913ZZ Drainage of Right Lobe Liver, Percutaneous Approach (ICD-10-PCS; 2017-11-23)
PROC: 05HY33Z Insertion of Infusion Device into Upper Vein, Percutaneous Approach (ICD-10-PCS; principal; 2017-11-25 09:15)
DX: K22.2 Esophageal obstruction (principal); K57.91 Diverticulosis of intestine, part unspecified, without perforation or abscess with bleeding; K75.9 Inflammatory liver disease, unspecified; K86.89 Other specified diseases of pancreas; E86.0 Dehydration; F41.1 Generalized anxiety disorder; I10 Essential (primary) hypertension; K21.9 Gastro-esophageal reflux disease without esophagitis; F32.9 Major depressive disorder, single episode, unspecified; F41.9 Anxiety disorder, unspecified; K44.9 Diaphragmatic hernia without obstruction or gangrene; K58.9 Irritable bowel syndrome, unspecified; R13.14 Dysphagia, pharyngoesophageal phase; N95.1 Menopausal and female climacteric states; S00.83XA Contusion of other part of head, initial encounter; X58.XXXA Exposure to other specified factors, initial encounter; Y93.89 Activity, other specified; Y92.89 Other specified places as the place of occurrence of the external cause; Z93.3 Colostomy status; Z90.710 Acquired absence of both cervix and uterus; Z90.49 Acquired absence of other specified parts of digestive tract; Z86.19 Personal history of other infectious and parasitic diseases; Y99.8 Other external cause status
CPT/HCPCS: 36415; 36569; 49405; 70450; 74022; 74177; 75989; 76937; 77001; 80048; 80053; 81003; 82150; 83605; 83690; 83735; 84145; 85025; 87015; 87040; 87070; 87075; 87116; 87205; 87206; 93005; 96361; 96374; 96375; 99156; 99157; C1894; J0295; J1170; J1335; J1450; J1644; J2248; J2250; J2405; J2543; J2550; J2704; J3010; J3490; Q9967; C1729; C1751; J2060; J2270; J2310; J3480; J7030; S0028

== ENCOUNTER → 2018-02-23 | Outpatient (CLI) | payer OTHER, MEDICARE ==
[~2018-02-23] MED LIST changes: +AMOX1TAB25 PO; +OMNIPAQUE 350 MG/ML, 100ML BOTTLE ONE; +OXYC-302 PO; +SENN1TAB67 PO; +SIME180C44 PO
== END | disposition home or self-care (01) ==
LOC: CFH 08:09
PROVIDERS: ATTEND Surgery
DX: K65.1 Peritoneal abscess (principal); B99.9 Unspecified infectious disease
CPT/HCPCS: 74177; Q9967

== ENCOUNTER 2018-04-25 18:16 | Emergency (ER) | payer OTHER, MEDICARE ==
[~2018-04-25] VITALS: Ht 162.6 cm; Wt 72.0 kg
[~2018-04-25 18:16] MED LIST changes: -OMNIPAQUE 350 MG/ML, 100ML BOTTLE ONE
[2018-04-25 18:34] VITALS: BP 136/75
[2018-04-25] MEDS ORDERED: LIDOCAINE-MPF 1%, 5ML ONE ×2 (18:47→19:17)
[2018-04-25] MEDS ORDERED: DIPH,PERTUSS(ACELL),TET VAC/PF 0.5 ML IM-VACC ONE ×2 (18:47→19:00)
[2018-04-25] MEDS ORDERED: LIDOCAINE-MPF 1%, 5ML INFIL ONE (19:00)
[2018-04-25] MEDS ORDERED: BACITRACIN ZINC OINT 500U/GM, 0.9 GM ONE (19:48)
== END 2018-04-25 20:01 | disposition home or self-care (01) ==
LOC: ED 19:55
DX: S61.411A Laceration without foreign body of right hand, initial encounter (principal); G43.909 Migraine, unspecified, not intractable, without status migrainosus; I10 Essential (primary) hypertension; W25.XXXA Contact with sharp glass, initial encounter; Y93.89 Activity, other specified; Y92.009 Unspecified place in unspecified non-institutional (private) residence as the place of occurrence of the external cause; Y99.8 Other external cause status
CPT/HCPCS: 12002; 90471; 90715; 99283

== ENCOUNTER → 2018-05-08 | Outpatient (CLI) | payer OTHER, MEDICARE ==
[~2018-05-08] MED LIST changes: +OMNIPAQUE 350 MG/ML, 100ML BOTTLE ONE
== END | disposition home or self-care (01) ==
LOC: CFH 09:53
PROVIDERS: ATTEND Surgery
DX: R18.8 Other ascites (principal)
CPT/HCPCS: 74177; Q9967

== ENCOUNTER → 2018-05-31 | Outpatient (CLI) | payer OTHER, MEDICARE ==
[~2018-05-31] MED LIST changes: -AMLO5TAB2 PO; +AMLO5TAB7 PO; -LOSA100T6 PO; +LOSA100T7 PO; -OMNIPAQUE 350 MG/ML, 100ML BOTTLE ONE
[2018-05-31 12:06] LABS: MICROSCOPIC NOT IND
[2018-05-31 12:15] LABS: CULTURE INDICATED? NO
[2018-05-31 12:16] LABS: ALANINE AMINOTRANSFERASE 19 U/L (12-78); ALBUMIN 3.7 g/dL (3.4-5.0); ANION GAP 11 mmol/L (5-15); CALCIUM 8.9 mg/dL (8.5-10.1); CHLORIDE 111 mmol/L (98-107); CREATININE 0.75 mg/dL (0.55-1.02)
[2018-05-31 12:18] LABS: ALKALINE PHOSPHATASE 130 U/L (45-117); BILIRUBIN,TOTAL 0.2 mg/dL (0.2-1.0); TOTAL PROTEIN 7.8 g/dL (6.4-8.2)
== END | disposition home or self-care (01) ==
LOC: STAR 10:42
PROVIDERS: ATTEND Surgery
DX: Z01.818 Encounter for other preprocedural examination (principal)
CPT/HCPCS: 36415; 80053; 81003; 93005

== ENCOUNTER 2018-06-06 06:05 | Inpatient (IN) | payer OTHER, MEDICARE ==
[~2018-06-06] VITALS: Ht 162.6 cm; Wt 79.0 kg
[2018-06-06] MEDS ORDERED: LACTATED RINGERS 1,000 ML IV SCH (06:53)
[2018-06-06] MEDS ORDERED: BUPIVACAINE/PF 0.5% ONE (06:54)
[2018-06-06] MEDS ORDERED: LIDOCAINE-MPF 1%, 2ML INFIL ONE (07:00)
[2018-06-06] MEDS ORDERED: FENTANYL PF 250 MCG/5ML ONE (07:34)
[2018-06-06] MEDS ORDERED: MIDAZOLAM 1 MG/ML, 2ML ONE (07:34)
[2018-06-06] MEDS ORDERED: LIDOCAINE-MPF 2% ,5ML ONE (07:35)
[2018-06-06] MEDS ORDERED: PROPOFOL 10 MG/ML, 20ML ONE (07:35)
[2018-06-06] MEDS ORDERED: ROCURONIUM 10MG/ML,5ML ONE (07:35)
[2018-06-06] MEDS ORDERED: PHENYLEPHRINE 10 MG/ML ONE (07:36)
[2018-06-06] MEDS ORDERED: GABAPENTIN 300 MG CAPSULE ONE ×2 (07:41)
[2018-06-06] MEDS ORDERED: ACETAMINOPHEN 500 MG TABLET ONE ×2 (07:41)
[2018-06-06] MEDS ORDERED: CEFOTETAN 2 GM ONE (08:16)
[2018-06-06] MEDS ORDERED: DEXAMETHASONE 4 MG/ML, 1ML ONE ×2 (08:26)
[2018-06-06] MEDS ORDERED: HALOPERIDOL 5 MG/ML IV PRN (09:00)
[2018-06-06] MEDS ORDERED: LORazepam 2 MG/ML, 1ML IVPush PRN (09:00)
[2018-06-06] MEDS ORDERED: PROMETHAZINE 25 MG/ML, 1ML IV PRN (09:00)
[2018-06-06] MEDS ORDERED: FENTANYL PF 100 MCG/2ML IV PRN (09:00)
[2018-06-06] MEDS ORDERED: LABETALOL 5MG/ML, 20ML IV PRN (09:00)
[2018-06-06] MEDS ORDERED: hydrALAzine 20 MG/ML, 1ML IV PRN (09:00)
[2018-06-06] MEDS ORDERED: MEPERIDINE/PF 25MG/0.5ML IVPush PRN (09:00)
[2018-06-06] MEDS ORDERED: ONDANSETRON 2MG/ML, 2ML ONE ×2 (10:06)
[2018-06-06] MEDS ORDERED: GLYCOPYRROLATE 0.4 MG/2 ML, 2ML ONE (10:46)
[2018-06-06] MEDS ORDERED: NEOSTIGMINE 1 MG/ML, 10ML ONE (10:46)
[2018-06-06] MEDS ORDERED: HYDROmorphone 2 MG/ML, 1ML ONE (10:57)
[2018-06-06] MEDS ORDERED: FENTANYL PF 100 MCG/2ML ONE (10:57)
[2018-06-06] MEDS: HYDROmorphone 2 MG/ML, 1ML IV PRN ×5 (11:10→12:34)
[2018-06-06] MEDS: OXYcodone 5 MG/5 ML ORAL.SOL UDC PO PRN ×3 (11:25→20:22)
[2018-06-06] MEDS ORDERED: LORazepam 2 MG/ML, 1ML ONE (11:35)
[2018-06-06] MEDS ORDERED: OXYcodone 5 MG/5 ML ORAL.SOL UDC ONE (11:35)
[2018-06-06] MEDS ORDERED: DIPHENHYDRAMINE 50 MG/ML, 1ML IV PRN (14:00)
[2018-06-06] MEDS ORDERED: HYDROmorphone 1 MG/ML, 1ML IV PRN (14:00)
[2018-06-06] MEDS ORDERED: DIPHENHYDRAMINE 25 MG CAPSULE PO PRN (14:00)
[2018-06-06 14:10] VITALS: BP 99/68
[2018-06-06] MEDS: ACETAMINOPHEN 500 MG TABLET PO SCH ×2 (14:23→20:24)
[2018-06-06] MEDS: POTASSIUM CHLORIDE 20 MEQ in D5%-0.45% NACL 1,000 ML IV SCH (14:23)
[2018-06-06] MEDS: IBUPROFEN 600 MG TABLET PO SCH ×2 (15:17→21:00)
[2018-06-06] MEDS: FLUCONAZOLE 200 MG/100 ML 100 ML IV SCH (15:17)
[2018-06-06] MEDS: PIPERACILLIN/TAZO/PMX 3.375GM 50 ML IV SCH (20:24)
[2018-06-06] MEDS: AMLODIPINE 5 MG TABLET PO SCH (21:00)
[2018-06-06 21:57] VITALS: BP 98/62
[2018-06-07 00:44] VITALS: BP 108/70
[2018-06-07] MEDS: ACETAMINOPHEN 500 MG TABLET PO SCH ×5 (02:00→23:12)
[2018-06-07] MEDS: PIPERACILLIN/TAZO/PMX 3.375GM 50 ML IV SCH ×3 (04:21→19:37)
[2018-06-07] MEDS: OXYcodone 5 MG/5 ML ORAL.SOL UDC PO PRN ×4 (04:22→19:39)
[2018-06-07 05:26] LABS: BASOPHILS % (AUTO) 0 % (0-1); EOSINOPHILS % (AUTO) 0 % (1-7); LYMPHOCYTES % (AUTO) 8 % (22-44); MD NO; MEAN CORPUSCULAR HEMOGLOBIN 25.9 pg (27.0-34.8); MEAN CORPUSCULAR HGB CONC 32.6 g/dL (32.4-35.8); MEAN CORPUSCULAR VOLUME 79.5 fL (80-100); MEAN PLATELET VOLUME 6.9 fL (7.4-10.4); MONOCYTES # (AUTO) 0.85 x10^3/uL (0.2-0.8); MONOCYTES % (AUTO) 9 % (2-9); NEUTROPHILS # (AUTO) 8.16 x10^3/uL (1.8-6.8); NEUTROPHILS % (AUTO) 83 % (42-75); PLATELET COUNT 370 x10^3/uL (130-400); RED BLOOD COUNT 3.07 x10^6/uL (3.82-5.3); RED CELL DISTRIBUTION WIDTH 17.7 % (9.6-15.2)
[2018-06-07 05:36] LABS: ALBUMIN 2.7 g/dL (3.4-5.0); ANION GAP 8 mmol/L (5-15); CALCIUM 8.1 mg/dL (8.5-10.1); CHLORIDE 104 mmol/L (98-107); CREATININE 0.76 mg/dL (0.55-1.02)
[2018-06-07] MEDS ORDERED: HYDROmorphone 2 MG/ML, 1ML ONE (05:38)
[2018-06-07] MEDS: HYDROmorphone 2 MG/ML, 1ML IV PRN (05:42)
[2018-06-07 07:20] VITALS: BP 90/55
[2018-06-07] MEDS: IBUPROFEN 600 MG TABLET PO SCH ×3 (08:35→19:37)
[2018-06-07] MEDS: ENOXAPARIN 40 MG/0.4 ML SQ SCH (08:36)
[2018-06-07] MEDS: POTASSIUM CHLORIDE 20 MEQ in D5%-0.45% NACL 1,000 ML IV SCH (10:37)
[2018-06-07 12:07] VITALS: BP 111/66
[2018-06-07] MEDS: FLUCONAZOLE 200 MG/100 ML 100 ML IV SCH (15:09)
[2018-06-07] MEDS ORDERED: ONDANSETRON 4 MG TABLET ONE (18:09)
[2018-06-07] MEDS ORDERED: ONDANSETRON ODT 4 MG ONE (18:11)
[2018-06-07] MEDS: ONDANSETRON ODT 4 MG PO PRN (18:12)
[2018-06-07] MEDS: AMLODIPINE 5 MG TABLET PO SCH (19:37)
[2018-06-07 21:33] VITALS: BP 112/62
[2018-06-08 01:19] VITALS: BP 108/64
[2018-06-08] MEDS: PIPERACILLIN/TAZO/PMX 3.375GM 50 ML IV SCH ×4 (01:47→18:17)
[2018-06-08] MEDS ORDERED: HYDROmorphone 2 MG/ML, 1ML ONE (06:05)
[2018-06-08] MEDS: HYDROmorphone 2 MG/ML, 1ML IV PRN (06:08)
[2018-06-08] MEDS: ACETAMINOPHEN 500 MG TABLET PO SCH ×4 (06:09→20:43)
[2018-06-08] MEDS: METOCLOPRAMIDE 5 MG/ML, 2ML IVPush SCH ×3 (08:32→20:43)
[2018-06-08] MEDS: IBUPROFEN 600 MG TABLET PO SCH ×3 (08:32→20:43)
[2018-06-08] MEDS: ENOXAPARIN 40 MG/0.4 ML SQ SCH (08:33)
[2018-06-08 08:43] VITALS: BP 100/54
[2018-06-08] MEDS: POTASSIUM CHLORIDE 20 MEQ in D5%-0.45% NACL 1,000 ML IV SCH (12:05)
[2018-06-08 13:44] VITALS: BP 104/64
[2018-06-08] MEDS: ONDANSETRON ODT 4 MG PO PRN (15:07)
[2018-06-08] MEDS: FLUCONAZOLE 200 MG/100 ML 100 ML IV SCH (15:51)
[2018-06-08 19:30] VITALS: BP 108/61
[2018-06-08] MEDS: AMLODIPINE 5 MG TABLET PO SCH (20:43)
[2018-06-08] MEDS: OXYcodone 5 MG/5 ML ORAL.SOL UDC PO PRN (22:41)
[2018-06-09] MEDS: PIPERACILLIN/TAZO/PMX 3.375GM 50 ML IV SCH ×4 (00:37→18:21)
[2018-06-09 00:40] VITALS: BP 111/63
[2018-06-09] MEDS: POTASSIUM CHLORIDE 20 MEQ in D5%-0.45% NACL 1,000 ML IV SCH ×2 (02:42→22:34)
[2018-06-09] MEDS: METOCLOPRAMIDE 5 MG/ML, 2ML IVPush SCH ×4 (02:42→19:59)
[2018-06-09] MEDS: ACETAMINOPHEN 500 MG TABLET PO SCH ×4 (04:00→22:14)
[2018-06-09 08:07] VITALS: BP 112/66
[2018-06-09] MEDS: ENOXAPARIN 40 MG/0.4 ML SQ SCH (08:18)
[2018-06-09] MEDS: IBUPROFEN 600 MG TABLET PO SCH ×3 (08:18→19:59)
[2018-06-09 14:27] VITALS: BP 113/63
[2018-06-09] MEDS: FLUCONAZOLE 200 MG/100 ML 100 ML IV SCH (15:31)
[2018-06-09] MEDS: ONDANSETRON ODT 4 MG PO PRN (19:59)
[2018-06-09] MEDS: AMLODIPINE 5 MG TABLET PO SCH (19:59)
[2018-06-09 20:53] VITALS: BP 124/73
[2018-06-09] MEDS: OXYcodone 5 MG/5 ML ORAL.SOL UDC PO PRN (22:14)
[2018-06-10] MEDS: PIPERACILLIN/TAZO/PMX 3.375GM 50 ML IV SCH ×2 (01:45→08:31)
[2018-06-10] MEDS: METOCLOPRAMIDE 5 MG/ML, 2ML IVPush SCH ×3 (01:52→14:00)
[2018-06-10 02:02] VITALS: BP 104/68
[2018-06-10] MEDS: ACETAMINOPHEN 500 MG TABLET PO SCH ×2 (04:00→08:31)
[2018-06-10 06:56] VITALS: BP 104/60
[2018-06-10] MEDS: IBUPROFEN 600 MG TABLET PO SCH (08:31)
[2018-06-10] MEDS: ENOXAPARIN 40 MG/0.4 ML SQ SCH (08:31)
[2018-06-10 13:15] VITALS: BP 131/63
[2018-06-10] MEDS ORDERED: FLUC200T PO (13:43)
[2018-06-10] MEDS ORDERED: OXYC-302 PO (13:46)
[2018-06-10] MEDS: POTASSIUM CHLORIDE 20 MEQ in D5%-0.45% NACL 1,000 ML IV SCH (14:00)
== END 2018-06-10 15:20 | disposition home health service (06) | DRG 353 ==
LOC: OUT 06:05 → 4NOR 13:09 → OUT 19:56 → 4NOR 19:56 → OUT 22:19 → 4NOR 22:19
PROVIDERS: ADMIT Surgery; ATTEND Surgery
PROC: 0WUF0JZ Supplement Abdominal Wall with Synthetic Substitute, Open Approach (ICD-10-PCS; principal; 2018-06-05)
PROC: 0DBV0ZX Excision of Mesentery, Open Approach, Diagnostic (ICD-10-PCS; 2018-06-05)
PROC: 0DBW0ZZ Excision of Peritoneum, Open Approach (ICD-10-PCS; 2018-06-05)
DX: K43.2 Incisional hernia without obstruction or gangrene (principal); K75.0 Abscess of liver; K21.9 Gastro-esophageal reflux disease without esophagitis; F41.9 Anxiety disorder, unspecified; M19.90 Unspecified osteoarthritis, unspecified site; F32.9 Major depressive disorder, single episode, unspecified; I10 Essential (primary) hypertension; B19.20 Unspecified viral hepatitis C without hepatic coma; R19.05 Periumbilic swelling, mass or lump; Z90.710 Acquired absence of both cervix and uterus
CPT/HCPCS: 36415; 87106; S0074; 80048; 82040; 85025; 87015; 87070; 87075; 87102; 87116; 87205; 87206; 88300; 88304; 88305; C1729; G0378; J1100; J1170; J1650; J2250; J2405; J2543; J2704; J2710; J3010; J3480; J3490; Q0162; C1765; C1781; J1200; J1450; J2060; J2370; J2765; J7120; Q0163

== ENCOUNTER → 2018-12-20 | Outpatient (CLI) | payer OTHER, MEDICARE ==
[~2018-12-20] MED LIST changes: +AMLO-150 PO; -AMLO5TAB7 PO; +FLUC200T PO; +LAMO PO; +LOSA100T14 PO; -LOSA100T7 PO; +MESA1.2T PO; +RIZA10TA34 PO
== END | disposition home or self-care (01) ==
LOC: CFH 09:51
PROVIDERS: ATTEND Nurse Practitioner Family
DX: M85.88 Other specified disorders of bone density and structure, other site (principal)
CPT/HCPCS: 77080

== ENCOUNTER 2018-12-26 11:13 | Emergency (ER) | payer OTHER, MEDICARE ==
[~2018-12-26] VITALS: Ht 162.6 cm; Wt 67.1 kg
[2018-12-26] MEDS ORDERED: SODIUM CHLORIDE FLUSH 10ML SYR IVF ONE (14:00)
[2018-12-26 14:38] LABS: MEAN CORPUSCULAR HEMOGLOBIN 29.2 pg (27.0-34.8); MEAN CORPUSCULAR HGB CONC 33.6 g/dL (32.4-35.8); MEAN CORPUSCULAR VOLUME 87.2 fL (80-100); MEAN PLATELET VOLUME 7.2 fL (7.4-10.4); PLATELET COUNT 415 x10^3/uL (130-400); RED BLOOD COUNT 4.87 x10^6/uL (3.82-5.3)
[2018-12-26 14:42] LABS: INTERNATIONAL NORMALIZED RATIO 1.05 (0.93-1.1)
[2018-12-26 14:45] LABS: ALANINE AMINOTRANSFERASE 21 U/L (12-78); ALBUMIN 3.9 g/dL (3.4-5.0); ANION GAP 7 mmol/L (5-15); CALCIUM 9.4 mg/dL (8.5-10.1); CHLORIDE 104 mmol/L (98-107); CREATININE 0.67 mg/dL (0.55-1.02)
[2018-12-26 14:47] LABS: ALKALINE PHOSPHATASE 94 U/L (45-117); BILIRUBIN,TOTAL 0.3 mg/dL (0.2-1.0); TOTAL PROTEIN 7.4 g/dL (6.4-8.2)
[2018-12-26 15:08] LABS: BASOPHILS # (AUTO) 0.07 x10^3/uL (0-0.1); BASOPHILS % (AUTO) 1 % (0-1); EOSINOPHILS # (AUTO) 0.27 x10^3/uL (0-0.4); EOSINOPHILS % (AUTO) 3 % (1-7); LYMPHOCYTES # (AUTO) 2.01 x10^3/uL (1-3.4); LYMPHOCYTES % (AUTO) 23 % (22-44); MD MORPH REVIEW ONLY; MONOCYTES # (AUTO) 0.77 x10^3/uL (0.2-0.8); MONOCYTES % (AUTO) 9 % (2-9); NEUTROPHILS % (AUTO) 64 % (42-75)
[2018-12-26 15:11] LABS: <PLATELET ESTIMATE> ADEQUATE; <PLT MORPHOLOGY> NORMAL PLT MORPH; ANISOCYTOSIS 2+; HYPOCHROMIA 1+; MICROCYTOSIS 1+; POLYCHROMASIA 1+
--- NOTE | 2018-12-26 15:35 | NUR ---
PT. IS A & O X 4 WITH C/O BLOODY STOOL AND DIARRHEA X 5 DAYS. IV ACCESS ESTABLISHED. PT.'S ABD. IS SOFT AND FLAT WITH BS + X 4 QUADS. PT. IS RESTING WITH THE HOB ELEVATED. PT. IS SLIGHTLY PALE. LUNGS ARE CTA. MM ARE MOIST WITH PULSES +2 THROUGHOUT. SIDERIALS REMAIN UP X 2 AND THE CALL LIGHT IS IN PLACE.
[2018-12-26] MEDS ORDERED: OMNIPAQUE 350 MG/ML, 100ML BOTTLE ONE (16:50)
--- NOTE | 2018-12-26 18:06 | NUR ---
PT. WAS GIVEN DISCHARGE INSTRUCTIONS WITH UNDERSTANDING VERBALIZED ALONG WITH WILLINGNESS TO COMPLY. PT.'S IV WAS DCD', CATH TIP INTACT. PRESSURE HELD WITH HEMOSTASIS ACHIEVED. PT. WAS AMBULATORY TO THE DISCHARGE DESK. VSS.
[2018-12-26 18:09] VITALS: BP 132/70
== END 2018-12-26 18:11 | disposition home or self-care (01) ==
LOC: ED 17:50
DX: K51.911 Ulcerative colitis, unspecified with rectal bleeding (principal); F32.9 Major depressive disorder, single episode, unspecified; I10 Essential (primary) hypertension; K21.9 Gastro-esophageal reflux disease without esophagitis; M10.9 Gout, unspecified; Z90.710 Acquired absence of both cervix and uterus; Z90.89 Acquired absence of other organs; Z90.721 Acquired absence of ovaries, unilateral
CPT/HCPCS: 36415; 74177; 80053; 83690; 85025; 85610; 85730; 86850; 86900; 99284; Q9967

== ENCOUNTER 2019-03-14 09:35 | Inpatient (IN) | payer OTHER, MEDICARE ==
[~2019-03-14] VITALS: Ht 162.6 cm; Wt 69.0 kg
--- NOTE | 2019-03-14 10:18 | NUR ---
BIRD KEEPER: PT TO ROOM FROM [facility]
--- NOTE | 2019-03-14 10:31 | NUR ---
PT REPORTS EPIGASTRIC PAIN SINCE YESTERDAY INCREASING IN SEVERITY SINCE ONSET NOTED TEMP 101.3 ON ARRIVAL AO4 NADN PT ALSO REPORT PAIN IN THE KNEES THAT HAS BEEN INCREASING THIS IS A CHRONIC CONDITION RELATED TO PRIOR SURG OF THE SAME
--- NOTE | 2019-03-14 10:56 | NUR ---
ULTRASOUND DELAY-IV/MEDS.
[2019-03-14] MEDS ORDERED: HYDROmorphone 2 MG/ML, 1ML IVPush PRN (11:00)
[2019-03-14] MEDS ORDERED: SODIUM CHLORIDE FLUSH 10ML SYR IVF ONE (11:00)
[2019-03-14] MEDS ORDERED: ONDANSETRON 2MG/ML, 2ML IVPush ONE (11:00)
[2019-03-14] MEDS ORDERED: ACETAMINOPHEN 500 MG TABLET PO ONE (11:00)
[2019-03-14] MEDS ORDERED: ONDANSETRON 2MG/ML, 2ML ONE (11:03)
[2019-03-14] MEDS ORDERED: HYDROmorphone 2 MG/ML, 1ML ONE (11:03)
--- NOTE | 2019-03-14 11:19 | NUR ---
PT SATS DOWN TO 85 ON RA, PLACED PATIENT ON 2LNC. SATS INCREASING. ULTRASOUND IN WITH PATIENT PERFORMING ABD US. PT SPOUSE AT BEDSIDE.
[2019-03-14] MEDS ORDERED: ACETAMINOPHEN 500 MG TABLET ONE (11:22)
[2019-03-14 11:32] LABS: BASOPHILS # (AUTO) 0.01 x10^3/uL (0-0.1); BASOPHILS % (AUTO) 0 % (0-1); EOSINOPHILS # (AUTO) 0.02 x10^3/uL (0-0.4); EOSINOPHILS % (AUTO) 0 % (1-7); LYMPHOCYTES # (AUTO) 0.61 x10^3/uL (1-3.4); LYMPHOCYTES % (AUTO) 4 % (22-44); MD NO; MEAN CORPUSCULAR HEMOGLOBIN 32.1 pg (27.0-34.8); MEAN CORPUSCULAR HGB CONC 33.2 g/dL (32.4-35.8); MEAN CORPUSCULAR VOLUME 96.7 fL (80-100); MEAN PLATELET VOLUME 6.6 fL (7.4-10.4); MONOCYTES % (AUTO) 6 % (2-9); NEUTROPHILS # (AUTO) 13.24 x10^3/uL (1.8-6.8); NEUTROPHILS % (AUTO) 90 % (42-75); PLATELET COUNT 297 x10^3/uL (130-400); RED BLOOD COUNT 4.05 x10^6/uL (3.82-5.3)
[2019-03-14 11:44] LABS: ALBUMIN 3.5 g/dL (3.4-5.0); ANION GAP 7 mmol/L (5-15); CALCIUM 8.4 mg/dL (8.5-10.1); CHLORIDE 103 mmol/L (98-107)
[2019-03-14 11:47] LABS: ALANINE AMINOTRANSFERASE 17 U/L (12-78); ALKALINE PHOSPHATASE 72 U/L (45-117); BILIRUBIN,TOTAL 0.6 mg/dL (0.2-1.0); CREATININE 0.64 mg/dL (0.55-1.02); TOTAL PROTEIN 6.6 g/dL (6.4-8.2)
--- NOTE | 2019-03-14 12:17 | NUR ---
PT TO CT
[2019-03-14] MEDS ORDERED: OMNIPAQUE 350 MG/ML, 100ML BOTTLE ONE (12:32)
--- NOTE | 2019-03-14 12:39 | NUR ---
PT RETURNED FROM CT, EKG COMPLETED AND GIVEN TO .
--- NOTE | 2019-03-14 12:42 | NUR ---
BREAK RN FOR PRIMARY RN TYRELL. PT RESTING IN POSITION OF COMFORT. DENIES NEED TO USE RESTROOM, ALL NEEDS MET AND ADDRESSED. FAMILY AT BEDSIDE. AWAITING CT RESULTS.
--- NOTE | 2019-03-14 13:17 | NUR ---
BREAK RN. REPORT AND CARE TO PRIMARY ALY SANTILLAN AT THIS TIME.
[2019-03-14] MEDS ORDERED: PIPERACILLIN/TAZO/PMX 3.375GM 50 ML IV ONE (13:30)
[2019-03-14 13:43] LABS: MICROSCOPIC NOT IND
[2019-03-14 13:44] LABS: CULTURE INDICATED? NO
[2019-03-14] MEDS ORDERED: PIPERACILLIN/TAZO/PMX 3.375GM 50 ML ONE (13:45)
[2019-03-14] MEDS ORDERED: LIDOCAINE-MPF 1%, 5ML ONE (13:48)
[2019-03-14] MEDS ORDERED: VANCOMYCIN 1,300 MG in SODIUM CHLORIDE 0.9% 250 ML IV ONE (14:00)
[2019-03-14] MEDS ORDERED: VANCOMYCIN PER PHARMACY MC PRN (14:00)
--- NOTE | 2019-03-14 14:07 | NUR ---
PT TO IR FOR US NEEDLE ASPIRATION
--- NOTE | 2019-03-14 14:21 | NUR ---
REPORT CALLED TO ALY JI. RADIOLOGY TO TRANSPORT PATIENT TO [facility].
[2019-03-14 14:54] VITALS: BP 90/54
[2019-03-14] MEDS ORDERED: ASPI1TAB31 PO (15:14)
[2019-03-14] MEDS ORDERED: PRED10TA PO (15:14)
[2019-03-14] MEDS ORDERED: MULT-249 PO (15:15)
[2019-03-14] MEDS ORDERED: VANCOMYCIN PER PHARMACY MC SCH (15:30)
[2019-03-14] MEDS ORDERED: ACETAMINOPHEN 325 MG TABLET PO PRN (16:00)
[2019-03-14] MEDS ORDERED: hydrALAzine 20 MG/ML, 1ML IVPush PRN (16:00)
[2019-03-14] MEDS ORDERED: morphine SULFATE 10 MG/ML, 1ML IVPush PRN (16:00)
[2019-03-14] MEDS: AMPICILLIN/SULBACTAM 3 GM in SODIUM CHLORIDE 0.9% 100 ML IV SCH ×2 (16:53→23:08)
[2019-03-14] MEDS ORDERED: PHARMACOKINETIC CONSULTATION MC ONE (17:00)
[2019-03-14] MEDS: ENOXAPARIN 40 MG/0.4 ML SQ SCH (17:21)
[2019-03-14] MEDS: VANCOMYCIN 1,300 MG in SODIUM CHLORIDE 0.9% 250 ML IV SCH (17:21)
[2019-03-14] MEDS: SODIUM CHLORIDE 0.9% 1,000 ML IV SCH (17:21)
[2019-03-14] MEDS ORDERED: POTASSIUM CHLORIDE 20 MEQ TAB.ER.PRT PO ONE (18:00)
[2019-03-14 20:51] VITALS: BP 97/57
[2019-03-14] MEDS: TEMAZEPAM 15 MG CAPSULE PO PRN (21:27)
[2019-03-15 03:00] VITALS: BP 97/59
[2019-03-15] MEDS: SODIUM CHLORIDE 0.9% 1,000 ML IV SCH ×2 (04:16→16:56)
[2019-03-15] MEDS: AMPICILLIN/SULBACTAM 3 GM in SODIUM CHLORIDE 0.9% 100 ML IV SCH ×3 (04:48→18:20)
[2019-03-15 05:43] LABS: BASOPHILS # (AUTO) 0.01 x10^3/uL (0-0.1); BASOPHILS % (AUTO) 0 % (0-1); EOSINOPHILS # (AUTO) 0.05 x10^3/uL (0-0.4); EOSINOPHILS % (AUTO) 0 % (1-7); LYMPHOCYTES # (AUTO) 0.72 x10^3/uL (1-3.4); LYMPHOCYTES % (AUTO) 6 % (22-44); MD NO; MEAN CORPUSCULAR HEMOGLOBIN 32.4 pg (27.0-34.8); MEAN CORPUSCULAR HGB CONC 33.1 g/dL (32.4-35.8); MEAN CORPUSCULAR VOLUME 97.9 fL (80-100); MEAN PLATELET VOLUME 7.1 fL (7.4-10.4); MONOCYTES # (AUTO) 1.18 x10^3/uL (0.2-0.8); MONOCYTES % (AUTO) 10 % (2-9); NEUTROPHILS % (AUTO) 84 % (42-75); PLATELET COUNT 268 x10^3/uL (130-400); RED BLOOD COUNT 3.72 x10^6/uL (3.82-5.3); RED CELL DISTRIBUTION WIDTH 14.6 % (9.6-15.2)
[2019-03-15 05:53] LABS: ALANINE AMINOTRANSFERASE 16 U/L (12-78); ALBUMIN 2.9 g/dL (3.4-5.0); ANION GAP 5 mmol/L (5-15); CALCIUM 8.5 mg/dL (8.5-10.1); CHLORIDE 108 mmol/L (98-107)
[2019-03-15 05:56] LABS: ALKALINE PHOSPHATASE 64 U/L (45-117); BILIRUBIN,TOTAL 0.6 mg/dL (0.2-1.0); CREATININE 0.48 mg/dL (0.55-1.02)
[2019-03-15 06:58] VITALS: BP 110/55
[2019-03-15] MEDS: PANTOPROZOLE 40MG TABLET PO SCH (07:53)
[2019-03-15] MEDS: MESALAMINE 1.2 GM TABLET.DR PO SCH (07:53)
[2019-03-15] MEDS: ONDANSETRON 2MG/ML, 2ML IVPush PRN ×2 (07:54→20:44)
[2019-03-15] MEDS ORDERED: LAMOTRIGINE HOMEMEDPO SCH (09:00)
[2019-03-15 13:23] VITALS: BP 112/56
[2019-03-15] MEDS: VANCOMYCIN 1,300 MG in SODIUM CHLORIDE 0.9% 250 ML IV SCH (13:38)
[2019-03-15] MEDS: ENOXAPARIN 40 MG/0.4 ML SQ SCH (17:05)
[2019-03-15 18:23] VITALS: BP 107/55
[2019-03-15] MEDS: TEMAZEPAM 15 MG CAPSULE PO PRN (20:40)
[2019-03-16] MEDS: AMPICILLIN/SULBACTAM 3 GM in SODIUM CHLORIDE 0.9% 100 ML IV SCH ×4 (00:31→20:01)
[2019-03-16 00:36] VITALS: BP 103/54
[2019-03-16] MEDS: SODIUM CHLORIDE 0.9% 1,000 ML IV SCH (04:08)
[2019-03-16] MEDS: VANCOMYCIN 1,300 MG in SODIUM CHLORIDE 0.9% 250 ML IV SCH ×2 (05:15→23:23)
[2019-03-16 07:20] VITALS: BP 99/61
[2019-03-16] MEDS: PANTOPROZOLE 40MG TABLET PO SCH ×2 (07:30→08:22)
[2019-03-16] MEDS: ONDANSETRON 2MG/ML, 2ML IVPush PRN ×3 (08:22→23:23)
[2019-03-16] MEDS: MESALAMINE 1.2 GM TABLET.DR PO SCH ×2 (08:31→09:00)
[2019-03-16] MEDS ORDERED: POTASSIUM PHOSPHATE 44 MEQ in SODIUM CHLORIDE 0.9% 500 ML IV ONE (10:30)
[2019-03-16 12:28] LABS: HCT (SEDRATE) 38.3 % (34.6-47.8)
[2019-03-16 14:59] VITALS: BP 124/70
[2019-03-16] MEDS: ENOXAPARIN 40 MG/0.4 ML SQ SCH (17:00)
[2019-03-16] MEDS ORDERED: METOCLOPRAMIDE 5 MG/ML, 2ML IVPush ONE (19:30)
[2019-03-16 20:02] VITALS: BP 125/65
[2019-03-17] MEDS: ASA/APAP/ CAFFEINE TABLET PO PRN (02:06)
[2019-03-17] MEDS: SODIUM CHLORIDE 0.9% 1,000 ML IV SCH ×2 (02:07→17:04)
[2019-03-17] MEDS: AMPICILLIN/SULBACTAM 3 GM in SODIUM CHLORIDE 0.9% 100 ML IV SCH ×4 (02:07→20:25)
[2019-03-17 02:09] VITALS: BP 105/51
[2019-03-17 05:08] LABS: ANION GAP 8 mmol/L (5-15); CALCIUM 8.4 mg/dL (8.5-10.1); CHLORIDE 106 mmol/L (98-107); CREATININE 0.42 mg/dL (0.55-1.02)
[2019-03-17 05:09] LABS: BASOPHILS # (AUTO) 0.04 x10^3/uL (0-0.1); BASOPHILS % (AUTO) 1 % (0-1); EOSINOPHILS # (AUTO) 0.04 x10^3/uL (0-0.4); EOSINOPHILS % (AUTO) 1 % (1-7); LYMPHOCYTES # (AUTO) 1.06 x10^3/uL (1-3.4); LYMPHOCYTES % (AUTO) 14 % (22-44); MD NO; MEAN CORPUSCULAR HEMOGLOBIN 31.2 pg (27.0-34.8); MEAN CORPUSCULAR HGB CONC 32.4 g/dL (32.4-35.8); MEAN CORPUSCULAR VOLUME 96.3 fL (80-100); MEAN PLATELET VOLUME 6.3 fL (7.4-10.4); MONOCYTES # (AUTO) 0.63 x10^3/uL (0.2-0.8); MONOCYTES % (AUTO) 8 % (2-9); NEUTROPHILS # (AUTO) 6.02 x10^3/uL (1.8-6.8); NEUTROPHILS % (AUTO) 77 % (42-75); PLATELET COUNT 303 x10^3/uL (130-400); RED BLOOD COUNT 3.74 x10^6/uL (3.82-5.3); RED CELL DISTRIBUTION WIDTH 13.9 % (9.6-15.2)
[2019-03-17 06:22] VITALS: BP 102/59
[2019-03-17] MEDS: PANTOPROZOLE 40MG TABLET PO SCH (08:05)
[2019-03-17] MEDS: MESALAMINE 1.2 GM TABLET.DR PO SCH (08:14)
[2019-03-17] MEDS: ONDANSETRON 2MG/ML, 2ML IVPush PRN (08:14)
[2019-03-17 14:23] VITALS: BP 131/69
[2019-03-17] MEDS: VANCOMYCIN 1,300 MG in SODIUM CHLORIDE 0.9% 250 ML IV SCH (17:04)
[2019-03-17] MEDS: ENOXAPARIN 40 MG/0.4 ML SQ SCH (17:04)
[2019-03-17 20:10] VITALS: BP 133/78
[2019-03-17] MEDS: TEMAZEPAM 15 MG CAPSULE PO PRN (21:09)
[2019-03-18] MEDS: AMPICILLIN/SULBACTAM 3 GM in SODIUM CHLORIDE 0.9% 100 ML IV SCH ×2 (02:18→07:38)
[2019-03-18 02:21] VITALS: BP 149/75
[2019-03-18] MEDS: ASA/APAP/ CAFFEINE TABLET PO PRN (02:25)
[2019-03-18] MEDS: SODIUM CHLORIDE 0.9% 1,000 ML IV SCH ×2 (03:00→13:07)
[2019-03-18] MEDS ORDERED: VANCOMYCIN 1,200 MG in SODIUM CHLORIDE 0.9% 250 ML IV SCH (05:00)
[2019-03-18 05:51] LABS: BASOPHILS # (AUTO) 0.04 x10^3/uL (0-0.1); BASOPHILS % (AUTO) 1 % (0-1); EOSINOPHILS % (AUTO) 2 % (1-7); LYMPHOCYTES # (AUTO) 1.55 x10^3/uL (1-3.4); LYMPHOCYTES % (AUTO) 25 % (22-44); MD NO; MEAN CORPUSCULAR HEMOGLOBIN 31.3 pg (27.0-34.8); MEAN CORPUSCULAR HGB CONC 32.3 g/dL (32.4-35.8); MEAN CORPUSCULAR VOLUME 96.9 fL (80-100); MEAN PLATELET VOLUME 6.3 fL (7.4-10.4); MONOCYTES # (AUTO) 0.53 x10^3/uL (0.2-0.8); MONOCYTES % (AUTO) 9 % (2-9); NEUTROPHILS # (AUTO) 4.02 x10^3/uL (1.8-6.8); NEUTROPHILS % (AUTO) 64 % (42-75); PLATELET COUNT 326 x10^3/uL (130-400); RED BLOOD COUNT 3.55 x10^6/uL (3.82-5.3); RED CELL DISTRIBUTION WIDTH 13.9 % (9.6-15.2)
[2019-03-18 06:55] VITALS: BP 136/73
[2019-03-18] MEDS: PANTOPROZOLE 40MG TABLET PO SCH (07:38)
[2019-03-18] MEDS: MESALAMINE 1.2 GM TABLET.DR PO SCH (07:38)
[2019-03-18] MEDS: ERTAPENEM 1 GM in SODIUM CHLORIDE 0.9% 50 ML IV SCH (12:16)
[2019-03-18 12:46] VITALS: BP 121/64
[2019-03-18] MEDS: ENOXAPARIN 40 MG/0.4 ML SQ SCH (17:14)
[2019-03-18 19:45] VITALS: BP_SYST 134; BP_SYST 151; BP_DIAS 74; BP_DIAS 77
[2019-03-18 19:47] VITALS: BP 134/74
[2019-03-18] MEDS: TEMAZEPAM 15 MG CAPSULE PO PRN (20:51)
[2019-03-19 02:15] VITALS: BP 125/70
[2019-03-19 06:52] VITALS: BP 138/74
[2019-03-19] MEDS: MESALAMINE 1.2 GM TABLET.DR PO SCH (07:39)
[2019-03-19] MEDS: PANTOPROZOLE 40MG TABLET PO SCH (07:40)
[2019-03-19] MEDS: ASA/APAP/ CAFFEINE TABLET PO PRN (07:53)
[2019-03-19] MEDS ORDERED: LACTOBACILLUS CHEW TABLET PO SCH (08:00)
[2019-03-19] MEDS: ERTAPENEM 1 GM in SODIUM CHLORIDE 0.9% 50 ML IV SCH (12:22)
[2019-03-19] MEDS ORDERED: ERTA1VIA4 IV (12:41)
[2019-03-19 13:52] VITALS: BP 140/72
== END 2019-03-19 14:50 | disposition home or self-care (01) | DRG 871 ==
LOC: ED 11:23 → EDIP 13:55 → SUATTDRO 14:28 → 4NOR 14:40 → DCLOUNGE 03-19 14:20
PROVIDERS: ADMIT Internal Medicine; ATTEND Internal Medicine
PROC: 0W9F3ZZ Drainage of Abdominal Wall, Percutaneous Approach (ICD-10-PCS; 2019-03-14)
PROC: 02HV33Z Insertion of Infusion Device into Superior Vena Cava, Percutaneous Approach (ICD-10-PCS; principal; 2019-03-17)
PROC: B5181ZA Fluoroscopy of Superior Vena Cava using Low Osmolar Contrast, Guidance (ICD-10-PCS; 2019-03-17)
PROC: B548ZZA Ultrasonography of Superior Vena Cava, Guidance (ICD-10-PCS; 2019-03-17)
DX: A41.9 Sepsis, unspecified organism (principal); K65.1 Peritoneal abscess; K75.0 Abscess of liver; K51.90 Ulcerative colitis, unspecified, without complications; T85.79XA Infection and inflammatory reaction due to other internal prosthetic devices, implants and grafts, initial encounter; D89.9 Disorder involving the immune mechanism, unspecified; E87.6 Hypokalemia; J45.909 Unspecified asthma, uncomplicated; I10 Essential (primary) hypertension; G43.909 Migraine, unspecified, not intractable, without status migrainosus; K21.9 Gastro-esophageal reflux disease without esophagitis; K43.9 Ventral hernia without obstruction or gangrene; Y83.2 Surgical operation with anastomosis, bypass or graft as the cause of abnormal reaction of the patient, or of later complication, without mention of misadventure at the time of the procedure; Z79.899 Other long term (current) drug therapy; Z43.3 Encounter for attention to colostomy; Z80.8 Family history of malignant neoplasm of other organs or systems; Z82.49 Family history of ischemic heart disease and other diseases of the circulatory system; Z90.49 Acquired absence of other specified parts of digestive tract; Z90.710 Acquired absence of both cervix and uterus; Z93.3 Colostomy status; Z80.1 Family history of malignant neoplasm of trachea, bronchus and lung
CPT/HCPCS: 10160; 36415; 36573; 74177; 76700; 76942; 80048; 80053; 80202; 81003; 83605; 83690; 83735; 84100; 85025; 85651; 86140; 87040; 87070; 87075; 87102; 87116; 87205; 87206; 93005; 96365; 96375; G0378; J0295; J1170; J1335; J1650; J2405; J2543; J3370; Q9967; C1751; J2765; J7030; J7040; J7050; J7512

== ENCOUNTER 2019-04-16 12:12 | Outpatient (CLI) | payer OTHER, MEDICARE | END 2019-04-16 23:59 | disposition home or self-care (01) | LOC: CFH 12:12 | PROVIDERS: ATTEND Internal Medicine Infectious Disease | DX: K65.1 Peritoneal abscess (principal); Z98.890 Other specified postprocedural states; Z90.710 Acquired absence of both cervix and uterus | CPT/HCPCS: 74177; Q9967 ==

== ENCOUNTER → 2019-07-25 | Outpatient (CLI) | payer OTHER, MEDICARE ==
[~2019-07-25] MED LIST changes: -ALPR-475 PO; +ALPR0.5T7 PO; +ERTA1VIA4 IV; +MULT-249 PO; +OMEP40CA42 PO; -OMEP40CA6 PO; +PRED10TA PO
== END | disposition home or self-care (01) ==
LOC: CARD 08:40
PROVIDERS: ATTEND Registered Nurse
DX: R55 Syncope and collapse (principal)
CPT/HCPCS: 95819

== ENCOUNTER 2019-09-12 21:32 | Emergency (ER) | payer OTHER, MEDICARE ==
[~2019-09-12] VITALS: Ht 162.6 cm; Wt 64.3 kg
[2019-09-12 21:42] VITALS: BP 150/83
[2019-09-12] MEDS ORDERED: ALBUTEROL/IPRATROPIUM 2.5MG/0.5MG, 3 ML NPPB ONE (22:30)
[2019-09-12] MEDS ORDERED: PROMETHAZINE/COD. 10MG/6.25MG/5 ML ORAL SOL PO ONE (22:30)
--- NOTE | 2019-09-12 22:34 | NUR ---
RECEIVED MEDS FROM PHARMACY. MEDS ADMIN PER NOV.
[2019-09-12] MEDS ORDERED: ALBUTEROL SULFATE 2.5 MG/3 ML NPPB ONE (23:00)
[2019-09-12] MEDS ORDERED: ALBUTEROL/IPRATROPIUM 2.5MG/0.5MG, 3 ML ONE (23:08)
--- NOTE | 2019-09-12 23:09 | NUR ---
RT AT BEDSIDE.
[2019-09-12] MEDS ORDERED: ALBUTEROL SULFATE 2.5 MG/3 ML ONE (23:18)
== END 2019-09-12 23:51 | disposition home or self-care (01) ==
LOC: ED 23:42
DX: J20.8 Acute bronchitis due to other specified organisms (principal); Z90.710 Acquired absence of both cervix and uterus
CPT/HCPCS: 71046; 93005; 94640; 99283; J7512; J7613; J7620

== ENCOUNTER 2020-06-18 09:25 | Observation (INO) | payer OTHER, MEDICARE ==
[~2020-06-18] VITALS: Ht 162.6 cm; Wt 73.0 kg
[~2020-06-18 09:25] MED LIST changes: -LAMO200T2 PO; +LAMO200T6 PO
--- NOTE | 2020-06-18 09:36 | NUR ---
LIDAR TECHNICIAN: EKG DONE IN TRIAGE BUT THERE IS TOO MUCH ARTIFACT R/T PT. BEING UNABLE TO HOLD STILL. WILL REPEATE EKG IN ROOM WHEN PT. ABLE TO LAY DOWN. DR. PINEDA VIEWED INITIAL EKG.
[2020-06-18] MEDS ORDERED: MORPHINE SULFATE 4 MG/ML, 1ML ONE (09:52)
[2020-06-18] MEDS ORDERED: ONDANSETRON 2MG/ML, 2ML ONE (09:52)
[2020-06-18] MEDS ORDERED: LORazepam 1MG TABLET ONE (09:53)
[2020-06-18] MEDS ORDERED: LORazepam 1MG TABLET PO ONE (10:00)
[2020-06-18] MEDS ORDERED: SODIUM CHLORIDE FLUSH 10ML SYR IVF ONE (10:00)
[2020-06-18] MEDS ORDERED: SODIUM CHLORIDE 0.9% 1,000ML IVBOLUS ONE ×2 (10:00→11:30)
[2020-06-18] MEDS ORDERED: MORPHINE SULFATE 4 MG/ML, 1ML IVPush PRN (10:00)
[2020-06-18] MEDS ORDERED: ONDANSETRON 2MG/ML, 2ML IVPush ONE (10:00)
--- NOTE | 2020-06-18 10:35 | NUR ---
UNABLE TO OBTAIN PERIPHERAL IV, AWAITING ADDITIONAL STAFF FOR PLACEMENT
[2020-06-18 10:36] LABS: BASOPHILS % (AUTO) 1 % (0-1); EOSINOPHILS % (AUTO) 0 % (1-7); LYMPHOCYTES % (AUTO) 13 % (22-44); MEAN CORPUSCULAR HGB CONC 33.8 g/dL (32.4-35.8); MEAN PLATELET VOLUME 6.7 fL (7.4-10.4); MONOCYTES % (AUTO) 5 % (2-9); NEUTROPHILS % (AUTO) 82 % (42-75); PLATELET COUNT 331 x10^3/uL (130-400); RED BLOOD COUNT 4.41 x10^6/uL (3.82-5.3); RED CELL DISTRIBUTION WIDTH 13.3 % (9.6-15.2)
[2020-06-18 10:42] LABS: MD NO
--- NOTE | 2020-06-18 10:47 | NUR ---
PT TO IMAGING
[2020-06-18 10:49] LABS: ALBUMIN 3.5 g/dL (3.4-5.0); ANION GAP 11 mmol/L (5-15); CALCIUM 8.8 mg/dL (8.5-10.1); CHLORIDE 94 mmol/L (98-107)
[2020-06-18 10:54] LABS: ALANINE AMINOTRANSFERASE 15 U/L (12-78); ALKALINE PHOSPHATASE 68 U/L (45-117); BILIRUBIN,TOTAL 0.6 mg/dL (0.2-1.0)
--- NOTE | 2020-06-18 11:17 | NUR ---
PT TO IMAGING
[2020-06-18 11:21] LABS: MICROSCOPIC NOT IND
--- NOTE | 2020-06-18 11:40 | NUR ---
PT BACK FROM IMAGING. REST COMFORTABLY IN BED. PT STATES PAIN IS "A LITTLE LESS AND NASUEA IS STILL THERE" ERP AWARE. PT DENIES ANY NEEDS AT THIS TIME, CALL LIGHT WITHIN REACH, FALL PRECAUTIONS IN PLACE.
[2020-06-18] MEDS ORDERED: PROMETHAZINE 25 MG/ML, 1ML ONE (11:48)
[2020-06-18] MEDS ORDERED: PROMETHAZINE 25 MG/ML, 1ML IM ONE (12:00)
--- NOTE | 2020-06-18 12:02 | NUR ---
PT SITTING UPRIGHT ON GURNEY. STATES NAUSEA AND PAIN REMAIN THE SAME. MEDICATED PER EMAR. PT DENIES ADDITIONAL NEEDS. DAUGHTER AT BEDSIDE. CALL LIGHT WITHIN REACH, FALL PRECAUTIONS IN PLACE.
--- NOTE | 2020-06-18 12:36 | NUR ---
task rn: pt ambulated to bathroom with steady gate
--- NOTE | 2020-06-18 12:59 | NUR ---
PT SUPINE ON GURNEY. DENIES ANY NEEDS AT THIS TIME. CALL LIGHT WITHIN REACH, FALL PRECAUTIONS IN PLACE.
--- NOTE | 2020-06-18 13:26 | NUR ---
Pt to be admitted to TELE 2, room 423. Report called to ADOLFO.
[2020-06-18 13:47] VITALS: BP 119/64
[2020-06-18] MEDS ORDERED: SODIUM CHLORIDE 0.9% 1,000 ML IV SCH (14:00)
[2020-06-18] MEDS ORDERED: POLYETHYLENE GLYCOL 17 GM PACKET PO PRN (14:00)
[2020-06-18] MEDS ORDERED: BISACODYL 10 MG SUPP PR PRN (14:00)
[2020-06-18] MEDS ORDERED: ASA/APAP/ CAFFEINE TABLET PO PRN (14:00)
[2020-06-18] MEDS ORDERED: MELATONIN 5 MG TABLET PO PRN (14:00)
[2020-06-18] MEDS ORDERED: ONDANSETRON 2MG/ML, 2ML IVPush PRN (14:00)
[2020-06-18] MEDS ORDERED: ACETAMINOPHEN 325 MG TABLET PO PRN (14:00)
[2020-06-18 15:17] LABS: ANION GAP 6 mmol/L (5-15); CALCIUM 8.7 mg/dL (8.5-10.1); CHLORIDE 107 mmol/L (98-107); CREATININE 0.64 mg/dL (0.55-1.02)
[2020-06-18] MEDS: DEXTROSE 5% 1,000 ML IV SCH (15:45)
[2020-06-18 15:50] LABS: FREE T4 (FREE THYROXINE) 1.08 ng/dL (0.76-1.46)
[2020-06-18] MEDS ORDERED: DEXTROSE 5% 1,000 ML IV SCH (16:00)
[2020-06-18 17:15] LABS: OSMOLALITY,URINE 65 mOsm/kg (500-850)
[2020-06-18 19:12] VITALS: BP 114/70
[2020-06-18 20:44] LABS: CALCIUM 8.8 mg/dL (8.5-10.1); CHLORIDE 109 mmol/L (98-107); CREATININE 0.69 mg/dL (0.55-1.02)
[2020-06-18 20:52] LABS: ANION GAP 6 mmol/L (5-15)
[2020-06-18] MEDS ORDERED: LOSARTAN 100 MG TAB PO SCH (21:00)
[2020-06-18] MEDS ORDERED: AMLODIPINE 5 MG TABLET PO SCH (21:00)
[2020-06-19 00:54] VITALS: BP 103/62
[2020-06-19 01:52] LABS: ANION GAP 5 mmol/L (5-15); CALCIUM 8.4 mg/dL (8.5-10.1); CHLORIDE 110 mmol/L (98-107); CREATININE 0.72 mg/dL (0.55-1.02)
[2020-06-19] MEDS: DEXTROSE 5% 1,000 ML IV SCH (04:28)
[2020-06-19 05:03] LABS: ANION GAP 5 mmol/L (5-15); CALCIUM 8.5 mg/dL (8.5-10.1); CHLORIDE 112 mmol/L (98-107)
[2020-06-19 07:36] VITALS: BP 112/69
[2020-06-19] MEDS ORDERED: SENNA/DOCUSATE TABLET PO SCH (09:00)
== END 2020-06-19 12:44 | disposition home or self-care (01) ==
LOC: ED 10:01 → EDIP 12:24 → INTOOBSV 12:24 → 4WST 13:41 → DCLOUNGE 06-19 12:31
PROVIDERS: ADMIT Family Medicine; ATTEND Internal Medicine
DX: E87.1 Hypo-osmolality and hyponatremia (principal); E86.1 Hypovolemia; R53.81 Other malaise; R53.1 Weakness; E27.40 Unspecified adrenocortical insufficiency; I10 Essential (primary) hypertension; F41.8 Other specified anxiety disorders; K21.9 Gastro-esophageal reflux disease without esophagitis; R41.82 Altered mental status, unspecified; R10.9 Unspecified abdominal pain; Z79.82 Long term (current) use of aspirin; Z79.899 Other long term (current) drug therapy; Z90.710 Acquired absence of both cervix and uterus; Z90.49 Acquired absence of other specified parts of digestive tract
CPT/HCPCS: 36415; 70450; 74022; 80048; 80053; 81003; 82533; 83935; 84439; 84443; 84481; 85025; 87040; 93005; 96361; 96372; 96374; 96375; 96376; 99285; G0378; J2270; J2405; J2550; J7030; J7070